=== PATIENT | female | born 1930 | race African-American/Black ===

== ENCOUNTER → 2016-06-30 | Day surgery (SDC) | payer MEDICARE, BC ==
[~2016-06-30] MED LIST: AMLO10TA80 PO; ASPI-1079 PO; ASPI-867; BACL-141; DIGO250T81 PO; DIGOXIN; EZET10TA PO; IBUP-777 PO; KV10 PO; LOSA100T14; POTA20TA82 PO; PRAV10TA35; SIMV40TA5 PO; TRAM50TA73; xeralto PO
== END | disposition home or self-care (01) ==
LOC: RAD 10:39
PROVIDERS: ATTEND Internal Medicine Endocrinology, Diabetes & Metabolism
DX: E07.89 Other specified disorders of thyroid (principal)
CPT/HCPCS: 10022; 76942; 88172; 88173

== ENCOUNTER 2016-12-07 11:23 | Emergency (ER) | payer MEDICARE, BC ==
[~2016-12-07] VITALS: Ht 162.6 cm; Wt 50.0 kg
[~2016-12-07 11:23] MED LIST changes: -EZET10TA PO; +ZET10 PO
[2016-12-07] MEDS ORDERED: TRAMADOL 50MG TABLET PO ONE (12:00)
[2016-12-07 12:19] LABS: BASOPHILS % 0.8 % (0.0-2.0); EOSINOPHILS % 0.5 % (0.0-5.0); HEMATOCRIT. 36.7 % (36.0-48.0); HEMOGLOBIN. 12.2 g/dL (12.0-16.0); LYMPHOCYTES % 14.1 % (20.0-50.0); MEAN CORPUSCULAR HEMOGLOBIN 28.6 pg (28.0-32.0); MEAN CORPUSCULAR VOLUME 86.3 fL (81.0-99.0); MEAN PLATELET VOLUME 8.8 fl (7.4-10.4); MONOCYTES % 5.1 % (2.0-8.0); NEUTROPHILS % 79.5 % (40.0-76.0); PLATELET 98 x1000/uL (130-400); RED BLOOD CELL COUNT 4.25 mill/uL (4.2-5.4); RED CELL DISTRIBUTION WIDTH 13.9 % (11.6-14.6)
[2016-12-07 12:34] LABS: CARBON DIOXIDE 33 mEq/L (21-32); CHLORIDE 103 mEq/L (98-107); CREATINE KINASE 33 IU/L (26-192); TROPONIN I < 0.02 ng/mL (0.00-0.04)
[2016-12-07 12:35] LABS: INR 1.1; PARTIAL THROMBOPLASTIN TIME 24.5 sec (23.4-31.0); PROTHROMBIN TIME 11.3 sec (9.4-11.6)
[2016-12-07 12:36] LABS: CREATINE KINASE MB FRACTION 0.9 ng/mL (0.5-3.6)
[2016-12-07 12:50] LABS: DIGOXIN < 0.1 ng/mL (0.9-2.0)
[2016-12-07 15:18] VITALS: BP 164/88
== END 2016-12-07 15:45 | disposition home or self-care (01) ==
LOC: ER 11:23
DX: S20.211A Contusion of right front wall of thorax, initial encounter (principal); I10 Essential (primary) hypertension; J44.9 Chronic obstructive pulmonary disease, unspecified; K21.9 Gastro-esophageal reflux disease without esophagitis; F03.90 Unspecified dementia, unspecified severity, without behavioral disturbance, psychotic disturbance, mood disturbance, and anxiety; R90.82 White matter disease, unspecified; Z88.0 Allergy status to penicillin; Z79.82 Long term (current) use of aspirin; Z88.6 Allergy status to analgesic agent; W19.XXXA Unspecified fall, initial encounter; Y93.89 Activity, other specified; Y92.89 Other specified places as the place of occurrence of the external cause; Y99.8 Other external cause status
CPT/HCPCS: 36415; 70450; 71010; 71101; 72170; 80053; 80162; 82550; 82553; 83690; 83880; 84484; 85025; 85610; 85730; 93005; 99285

== ENCOUNTER 2017-02-18 11:39 | Emergency (ER) | payer MEDICARE, BC ==
[~2017-02-18] VITALS: Ht 162.6 cm; Wt 50.0 kg
[~2017-02-18 11:39] MED LIST changes: -TRAM50TA73; +TRAM50TA94
[2017-02-18] MEDS ORDERED: SODIUM CHLORIDE 0.9% 500 ML IV ONE (14:10)
[2017-02-18] MEDS ORDERED: MORPHINE SULFATE 2 MG/ML CPJ (NOT FOR IM USE) IV ONE (14:15)
[2017-02-18 15:34] LABS: BASOPHILS % 0.3 % (0.0-2.0); EOSINOPHILS % 0.2 % (0.0-5.0); HEMATOCRIT. 35.7 % (36.0-48.0); HEMOGLOBIN. 11.9 g/dL (12.0-16.0); LYMPHOCYTES % 11.9 % (20.0-50.0); MEAN CORPUSCULAR HEMOGLOBIN 29.2 pg (28.0-32.0); MEAN CORPUSCULAR VOLUME 87.8 fL (81.0-99.0); MEAN PLATELET VOLUME 8.9 fl (7.4-10.4); MONOCYTES % 5.2 % (2.0-8.0); NEUTROPHILS % 82.4 % (40.0-76.0); PLATELET 99 x1000/uL (130-400); RED BLOOD CELL COUNT 4.07 mill/uL (4.2-5.4)
[2017-02-18 15:40] LABS: CHLORIDE 107 mEq/L (98-107)
[2017-02-18 15:44] LABS: INR 1.1; PARTIAL THROMBOPLASTIN TIME 24.5 sec (23.4-31.0); PROTHROMBIN TIME 11.5 sec (9.4-11.6)
[2017-02-18 15:56] LABS: CARBON DIOXIDE 33 mEq/L (21-32)
[2017-02-18 16:02] LABS: DIGOXIN < 0.1 ng/mL (0.9-2.0)
[2017-02-18 18:16] VITALS: BP 134/72
== END 2017-02-18 18:42 | disposition home or self-care (01) ==
LOC: ER 11:49
DX: R51 Headache (principal); M25.551 Pain in right hip; M25.552 Pain in left hip; R79.1 Abnormal coagulation profile; E11.9 Type 2 diabetes mellitus without complications; F03.90 Unspecified dementia, unspecified severity, without behavioral disturbance, psychotic disturbance, mood disturbance, and anxiety; I10 Essential (primary) hypertension; K21.9 Gastro-esophageal reflux disease without esophagitis; K59.00 Constipation, unspecified; W01.0XXA Fall on same level from slipping, tripping and stumbling without subsequent striking against object, initial encounter; Y93.89 Activity, other specified; Y99.8 Other external cause status; Y92.89 Other specified places as the place of occurrence of the external cause; Z79.82 Long term (current) use of aspirin; Z88.0 Allergy status to penicillin; Z95.1 Presence of aortocoronary bypass graft
CPT/HCPCS: 36415; 70450; 71010; 73521; 80053; 80162; 85025; 85610; 85730; 93005; 96361; 96374; 99285; J2270; J7040

== ENCOUNTER 2017-05-15 17:50 | Inpatient (IN) | payer MEDICARE, BC ==
[~2017-05-15] VITALS: Ht 165.1 cm; Wt 53.5 kg
[~2017-05-15 17:50] MED LIST changes: -AMLO10TA80 PO; -ASPI-1079 PO; -ASPI-867; -BACL-141; +BENJ PO; -DIGO250T81 PO; -DIGOXIN; +DONE10TA43 PO; +GABA-531 PO; +HYDR200T80 PO; -IBUP-777 PO; -KV10 PO; -LOSA100T14; +MEMA10TA2 PO; +OMEP20TA2 PO; +PARO-66 PO; -POTA20TA82 PO; -PRAV10TA35; +PRAV40TA58 PO; -SIMV40TA5 PO; -TRAM50TA94; -xeralto PO
[2017-05-15 18:40] VITALS: BP 171/82
[2017-05-15 20:00] VITALS: BP 186/85
[2017-05-15] MEDS ORDERED: DICYCLOMINE HCL 10MG CAPSULE PO PRN (20:15)
[2017-05-15] MEDS: CLONIDINE 0.1MG TABLET PO PRN (20:53)
[2017-05-15] MEDS: ATORVASTATIN CALCIUM 10MG TABLET PO SCH (20:54)
[2017-05-15] MEDS: GABAPENTIN 300MG CAPSULE PO SCH (20:54)
[2017-05-15] MEDS ORDERED: DONEPEZIL 23 MG PO SCH (21:00)
[2017-05-16] MEDS: DONEPEZIL 23MG PO SCH ×3 (00:06→21:13)
[2017-05-16] MEDS: PAROXETINE HCL 20MG TABLET PO SCH ×2 (00:07→21:13)
[2017-05-16 07:13] LABS: BASOPHILS % 0.7 % (0.0-2.0); EOSINOPHILS % 2.7 % (0.0-5.0); HEMATOCRIT. 30.1 % (36.0-48.0); HEMOGLOBIN. 10.2 g/dL (12.0-16.0); LYMPHOCYTES % 23.7 % (20.0-50.0); MEAN CORPUSCULAR HEMOGLOBIN 28.9 pg (28.0-32.0); MEAN PLATELET VOLUME 8.9 fl (7.4-10.4); MONOCYTES % 8.3 % (2.0-8.0); NEUTROPHILS % 64.6 % (40.0-76.0); PLATELET 146 x1000/uL (130-400); RED BLOOD CELL COUNT 3.54 mill/uL (4.2-5.4); RED CELL DISTRIBUTION WIDTH 12.9 % (11.6-14.6)
[2017-05-16 07:26] LABS: CHLORIDE 107 mEq/L (98-107)
[2017-05-16 07:42] LABS: PREALBUMIN 15.8 mg/dL (20.0-40.0)
[2017-05-16 08:00] VITALS: BP 157/82
[2017-05-16] MEDS: FAMOTIDINE 20MG TABLET PO SCH (08:17)
[2017-05-16] MEDS: HYDROXYCHLOROQUINE SULFATE 200MG TABLET PO SCH (08:18)
[2017-05-16] MEDS: MEMANTINE HCL 10MG TABLET PO SCH ×2 (08:18→16:44)
[2017-05-16] MEDS: EZETIMIBE 10MG TABLET PO SCH (08:19)
[2017-05-16] MEDS: CLOPIDOGREL 75MG TABLET PO SCH (08:20)
[2017-05-16] MEDS: ENOXAPARIN 30MG/0.3ML SYR SUBCUT SCH (10:13)
[2017-05-16] MEDS: TRAMADOL 50MG TABLET PO PRN (10:15)
[2017-05-16 20:00] VITALS: BP 171/86
[2017-05-16] MEDS: GABAPENTIN 300MG CAPSULE PO SCH (21:13)
[2017-05-16] MEDS: ATORVASTATIN CALCIUM 10MG TABLET PO SCH (21:14)
[2017-05-16] MEDS: CLONIDINE 0.1MG TABLET PO PRN (21:14)
[2017-05-17 08:00] VITALS: BP 186/87
[2017-05-17] MEDS: CLOPIDOGREL 75MG TABLET PO SCH (09:34)
[2017-05-17] MEDS: FAMOTIDINE 20MG TABLET PO SCH (09:34)
[2017-05-17] MEDS: MEMANTINE HCL 10MG TABLET PO SCH ×2 (09:34→17:56)
[2017-05-17] MEDS: ENOXAPARIN 30MG/0.3ML SYR SUBCUT SCH (09:34)
[2017-05-17] MEDS: HYDROXYCHLOROQUINE SULFATE 200MG TABLET PO SCH (09:34)
[2017-05-17] MEDS: EZETIMIBE 10MG TABLET PO SCH (09:34)
[2017-05-17 10:20] VITALS: BP 137/89
[2017-05-17] MEDS: TRAMADOL 50MG TABLET PO PRN (10:44)
[2017-05-17] MEDS: AMLODIPINE 5MG TABLET PO SCH (12:36)
[2017-05-17] MEDS ORDERED: TRAMADOL 50MG TABLET PO PRN (16:15)
[2017-05-17 20:00] VITALS: BP 146/68
[2017-05-17] MEDS: ATORVASTATIN CALCIUM 10MG TABLET PO SCH (20:53)
[2017-05-17] MEDS: DONEPEZIL 23MG PO SCH (20:54)
[2017-05-17] MEDS: GABAPENTIN 300MG CAPSULE PO SCH (20:54)
[2017-05-17] MEDS: PAROXETINE HCL 20MG TABLET PO SCH (20:54)
[2017-05-18 06:57] LABS: BASOPHILS % 0.8 % (0.0-2.0); EOSINOPHILS % 1.5 % (0.0-5.0); HEMATOCRIT. 32.9 % (36.0-48.0); HEMOGLOBIN. 11.3 g/dL (12.0-16.0); LYMPHOCYTES % 27.7 % (20.0-50.0); MEAN CORPUSCULAR VOLUME 84.6 fL (81.0-99.0); MEAN PLATELET VOLUME 8.9 fl (7.4-10.4); PLATELET 158 x1000/uL (130-400); RED CELL DISTRIBUTION WIDTH 13.4 % (11.6-14.6)
[2017-05-18 07:11] LABS: CHLORIDE 103 mEq/L (98-107)
[2017-05-18 07:25] LABS: PHOSPHORUS 3.5 mg/dL (2.5-4.9); TOTAL IRON BINDING CAPACITY 257 ug/dL (250-450)
[2017-05-18 07:48] LABS: VITAMIN B12 SERUM 1017 pg/mL (211-911)
[2017-05-18 08:00] VITALS: BP 164/90
[2017-05-18] MEDS: CLOPIDOGREL 75MG TABLET PO SCH (08:45)
[2017-05-18] MEDS: AMLODIPINE 5MG TABLET PO SCH (08:46)
[2017-05-18] MEDS: FAMOTIDINE 20MG TABLET PO SCH (08:46)
[2017-05-18] MEDS: MEMANTINE HCL 10MG TABLET PO SCH ×2 (08:47→17:41)
[2017-05-18] MEDS: HYDROXYCHLOROQUINE SULFATE 200MG TABLET PO SCH (08:47)
[2017-05-18] MEDS: EZETIMIBE 10MG TABLET PO SCH (08:49)
[2017-05-18] MEDS: ENOXAPARIN 30MG/0.3ML SYR SUBCUT SCH (08:50)
[2017-05-18 11:38] LABS: CLARITY URINE CLEAR (CLEAR); COLOR URINE YELLOW (YELLOW); KETONES URINE NEGATIVE (NEGATIVE); LEUKOCYTE ESTERASE URINE NEGATIVE (NEGATIVE); NITRITE URINE NEGATIVE (NEGATIVE); OCCULT BLOOD URINE NEGATIVE (NEGATIVE); PROTEIN URINE NEGATIVE (NEGATIVE); SPECIFIC GRAVITY URINE 1.013 (1.005-1.030); UROBILINOGEN URINE 0.2 E.U./dL (0.2-1.0)
[2017-05-18 11:56] LABS: FERRITIN 424 ng/mL (10-291)
[2017-05-18 20:00] VITALS: BP 151/75
[2017-05-18] MEDS: ATORVASTATIN CALCIUM 10MG TABLET PO SCH (21:26)
[2017-05-18] MEDS: PAROXETINE HCL 20MG TABLET PO SCH (21:26)
[2017-05-18] MEDS: DONEPEZIL 23MG PO SCH (21:26)
[2017-05-18] MEDS: GABAPENTIN 300MG CAPSULE PO SCH (21:26)
[2017-05-19] MEDS: CLOPIDOGREL 75MG TABLET PO SCH (08:29)
[2017-05-19] MEDS: HYDROXYCHLOROQUINE SULFATE 200MG TABLET PO SCH (08:29)
[2017-05-19] MEDS: EZETIMIBE 10MG TABLET PO SCH (08:29)
[2017-05-19 08:30] VITALS: BP 163/88
[2017-05-19] MEDS: MEMANTINE HCL 10MG TABLET PO SCH ×2 (08:30→16:32)
[2017-05-19] MEDS: AMLODIPINE 10MG TABLET PO SCH (08:30)
[2017-05-19] MEDS: FAMOTIDINE 20MG TABLET PO SCH (08:30)
[2017-05-19] MEDS: ENOXAPARIN 30MG/0.3ML SYR SUBCUT SCH (08:30)
[2017-05-19 11:15] VITALS: BP 124/72
[2017-05-19] MEDS: LIDOCAINE 5% PATCH TOP SCH (11:18)
[2017-05-19 20:00] VITALS: BP 137/72
[2017-05-19] MEDS: GABAPENTIN 300MG CAPSULE PO SCH (21:30)
[2017-05-19] MEDS: ATORVASTATIN CALCIUM 10MG TABLET PO SCH (21:30)
[2017-05-19] MEDS: PAROXETINE HCL 20MG TABLET PO SCH (21:30)
[2017-05-19] MEDS: DONEPEZIL 23MG PO SCH (21:31)
[2017-05-20 08:30] VITALS: BP 144/81
[2017-05-20] MEDS: HYDROXYCHLOROQUINE SULFATE 200MG TABLET PO SCH (08:34)
[2017-05-20] MEDS: EZETIMIBE 10MG TABLET PO SCH (08:34)
[2017-05-20] MEDS: MEMANTINE HCL 10MG TABLET PO SCH ×2 (08:35→16:05)
[2017-05-20] MEDS: FAMOTIDINE 20MG TABLET PO SCH (08:35)
[2017-05-20] MEDS: ENOXAPARIN 30MG/0.3ML SYR SUBCUT SCH (08:35)
[2017-05-20] MEDS: AMLODIPINE 10MG TABLET PO SCH (08:35)
[2017-05-20] MEDS: LIDOCAINE 5% PATCH TOP SCH (08:36)
[2017-05-20] MEDS: CLOPIDOGREL 75MG TABLET PO SCH (08:37)
[2017-05-20] MEDS ORDERED: LACTULOSE 20G/30ML UDC PO SCH (10:45)
[2017-05-20 20:00] VITALS: BP 123/67
[2017-05-20] MEDS: GABAPENTIN 300MG CAPSULE PO SCH (21:15)
[2017-05-20] MEDS: ATORVASTATIN CALCIUM 10MG TABLET PO SCH (21:15)
[2017-05-20] MEDS: PAROXETINE HCL 20MG TABLET PO SCH (21:16)
[2017-05-20] MEDS: DONEPEZIL 23MG PO SCH (21:19)
[2017-05-21 06:20] LABS: BASOPHILS % 1.1 % (0.0-2.0); EOSINOPHILS % 1.2 % (0.0-5.0); HEMATOCRIT. 32.7 % (36.0-48.0); HEMOGLOBIN. 10.9 g/dL (12.0-16.0); LYMPHOCYTES % 26.2 % (20.0-50.0); MEAN CORPUSCULAR HEMOGLOBIN 28.8 pg (28.0-32.0); MEAN CORPUSCULAR VOLUME 86.3 fL (81.0-99.0); MEAN PLATELET VOLUME 8.7 fl (7.4-10.4); MONOCYTES % 10.2 % (2.0-8.0); NEUTROPHILS % 61.3 % (40.0-76.0); PLATELET 173 x1000/uL (130-400); RED BLOOD CELL COUNT 3.79 mill/uL (4.2-5.4); RED CELL DISTRIBUTION WIDTH 13.7 % (11.6-14.6)
[2017-05-21 07:14] LABS: CHLORIDE 107 mEq/L (98-107)
[2017-05-21 08:00] VITALS: BP 150/75
[2017-05-21] MEDS: MEMANTINE HCL 10MG TABLET PO SCH ×2 (09:13→17:37)
[2017-05-21] MEDS: FAMOTIDINE 20MG TABLET PO SCH (09:13)
[2017-05-21] MEDS: EZETIMIBE 10MG TABLET PO SCH (09:14)
[2017-05-21] MEDS: HYDROXYCHLOROQUINE SULFATE 200MG TABLET PO SCH (09:14)
[2017-05-21] MEDS: AMLODIPINE 10MG TABLET PO SCH (09:14)
[2017-05-21] MEDS: CLOPIDOGREL 75MG TABLET PO SCH (09:14)
[2017-05-21] MEDS: ENOXAPARIN 30MG/0.3ML SYR SUBCUT SCH (09:15)
[2017-05-21] MEDS: LIDOCAINE 5% PATCH TOP SCH (09:17)
[2017-05-21 20:00] VITALS: BP 132/68
[2017-05-21] MEDS: ATORVASTATIN CALCIUM 10MG TABLET PO SCH (21:59)
[2017-05-21] MEDS: DONEPEZIL 23MG PO SCH (21:59)
[2017-05-21] MEDS: PAROXETINE HCL 20MG TABLET PO SCH (21:59)
[2017-05-21] MEDS: GABAPENTIN 300MG CAPSULE PO SCH (21:59)
[2017-05-22 08:00] VITALS: BP 144/75
[2017-05-22] MEDS: FAMOTIDINE 20MG TABLET PO SCH (08:36)
[2017-05-22] MEDS: CLOPIDOGREL 75MG TABLET PO SCH (08:37)
[2017-05-22] MEDS: HYDROXYCHLOROQUINE SULFATE 200MG TABLET PO SCH (08:37)
[2017-05-22] MEDS: MEMANTINE HCL 10MG TABLET PO SCH ×2 (08:37→17:12)
[2017-05-22] MEDS: ENOXAPARIN 30MG/0.3ML SYR SUBCUT SCH (08:37)
[2017-05-22] MEDS: AMLODIPINE 10MG TABLET PO SCH (08:37)
[2017-05-22] MEDS: EZETIMIBE 10MG TABLET PO SCH (08:37)
[2017-05-22] MEDS: LIDOCAINE 5% PATCH TOP SCH (08:40)
[2017-05-22 13:07] LABS: 25-HYDROXY VITAMIN D3 42 ng/mL (.)
[2017-05-22 17:31] LABS: CLARITY URINE CLOUDY (CLEAR); COLOR URINE YELLOW (YELLOW); KETONES URINE NEGATIVE (NEGATIVE); LEUKOCYTE ESTERASE URINE 3+ (NEGATIVE); NITRITE URINE NEGATIVE (NEGATIVE); OCCULT BLOOD URINE TRACE (NEGATIVE); PROTEIN URINE NEGATIVE (NEGATIVE); SPECIFIC GRAVITY URINE 1.016 (1.005-1.030); UROBILINOGEN URINE 0.2 E.U./dL (0.2-1.0)
[2017-05-22 20:00] VITALS: BP 132/72
[2017-05-22 20:55] LABS: BASOPHILS % 0.5 % (0.0-2.0); EOSINOPHILS % 0.2 % (0.0-5.0); HEMATOCRIT. 32.9 % (36.0-48.0); HEMOGLOBIN. 11.2 g/dL (12.0-16.0); LYMPHOCYTES % 14.7 % (20.0-50.0); MEAN CORPUSCULAR HEMOGLOBIN 29.1 pg (28.0-32.0); MEAN CORPUSCULAR VOLUME 85.5 fL (81.0-99.0); MEAN PLATELET VOLUME 8.5 fl (7.4-10.4); MONOCYTES % 9.6 % (2.0-8.0); PLATELET 157 x1000/uL (130-400); RED BLOOD CELL COUNT 3.84 mill/uL (4.2-5.4); RED CELL DISTRIBUTION WIDTH 13.7 % (11.6-14.6)
[2017-05-22 21:14] LABS: CHLORIDE 107 mEq/L (98-107)
[2017-05-22 21:16] LABS: AMMONIA < 10 uMol/L (<32)
[2017-05-22 21:18] LABS: PHOSPHORUS 4.4 mg/dL (2.5-4.9)
[2017-05-22] MEDS: GABAPENTIN 300MG CAPSULE PO SCH (21:53)
[2017-05-22] MEDS: ATORVASTATIN CALCIUM 10MG TABLET PO SCH (21:53)
[2017-05-22] MEDS: PAROXETINE HCL 20MG TABLET PO SCH (21:53)
[2017-05-22] MEDS: DONEPEZIL 23MG PO SCH (21:54)
[2017-05-22] MEDS: ASPIRIN/DIPYRIDAMOLE 25MG/200MG CAPSULE SA PO SCH (21:58)
[2017-05-23 08:00] VITALS: BP 134/76
[2017-05-23] MEDS: MEMANTINE HCL 10MG TABLET PO SCH ×2 (08:52→16:58)
[2017-05-23] MEDS: ASPIRIN/DIPYRIDAMOLE 25MG/200MG CAPSULE SA PO SCH ×2 (08:52→22:02)
[2017-05-23] MEDS: AMLODIPINE 10MG TABLET PO SCH (08:52)
[2017-05-23] MEDS: FAMOTIDINE 20MG TABLET PO SCH (08:53)
[2017-05-23] MEDS: ENOXAPARIN 30MG/0.3ML SYR SUBCUT SCH (08:53)
[2017-05-23] MEDS: EZETIMIBE 10MG TABLET PO SCH (08:53)
[2017-05-23] MEDS: HYDROXYCHLOROQUINE SULFATE 200MG TABLET PO SCH (08:53)
[2017-05-23] MEDS: LIDOCAINE 5% PATCH TOP SCH (08:54)
[2017-05-23] MEDS: DEXT 5%/0.45% NACL 500ML 500 ML IV SCH ×2 (18:16→22:00)
[2017-05-23 20:00] VITALS: BP 119/63
[2017-05-23] MEDS: PAROXETINE HCL 20MG TABLET PO SCH (22:01)
[2017-05-23] MEDS: GABAPENTIN 300MG CAPSULE PO SCH (22:02)
[2017-05-23] MEDS: ATORVASTATIN CALCIUM 10MG TABLET PO SCH (22:02)
[2017-05-23] MEDS: DONEPEZIL 23MG PO SCH (22:02)
[2017-05-24] MEDS: DEXT 5%/0.45% NACL 500ML 500 ML IV SCH (04:31)
[2017-05-24 07:18] LABS: BASOPHILS % 0.5 % (0.0-2.0); HEMATOCRIT. 32.6 % (36.0-48.0); LYMPHOCYTES % 17.8 % (20.0-50.0); MEAN CORPUSCULAR HEMOGLOBIN 29.2 pg (28.0-32.0); MEAN CORPUSCULAR VOLUME 86.1 fL (81.0-99.0); MEAN PLATELET VOLUME 8.9 fl (7.4-10.4); MONOCYTES % 7.3 % (2.0-8.0); NEUTROPHILS % 74.4 % (40.0-76.0); PLATELET 168 x1000/uL (130-400); RED BLOOD CELL COUNT 3.79 mill/uL (4.2-5.4); RED CELL DISTRIBUTION WIDTH 13.8 % (11.6-14.6)
[2017-05-24] MEDS ORDERED: TRAMADOL 50MG TABLET PO PRN (08:00)
[2017-05-24 08:12] LABS: PHOSPHORUS 4.6 mg/dL (2.5-4.9)
[2017-05-24 08:19] VITALS: BP 116/65
[2017-05-24] MEDS: FAMOTIDINE 20MG TABLET PO SCH (09:12)
[2017-05-24] MEDS: MEMANTINE HCL 10MG TABLET PO SCH ×2 (09:12→17:38)
[2017-05-24] MEDS: AMLODIPINE 10MG TABLET PO SCH (09:12)
[2017-05-24] MEDS: ASPIRIN/DIPYRIDAMOLE 25MG/200MG CAPSULE SA PO SCH ×2 (09:12→21:15)
[2017-05-24] MEDS: EZETIMIBE 10MG TABLET PO SCH (09:12)
[2017-05-24] MEDS: HYDROXYCHLOROQUINE SULFATE 200MG TABLET PO SCH (09:12)
[2017-05-24] MEDS: ENOXAPARIN 30MG/0.3ML SYR SUBCUT SCH (09:13)
[2017-05-24] MEDS: LIDOCAINE 5% PATCH TOP SCH (09:20)
[2017-05-24 11:06] LABS: CHLORIDE 106 mEq/L (98-107)
[2017-05-24] MEDS: DEXT 5%/0.45% NACL 1000ML 1,000 ML IV SCH (14:59)
[2017-05-24 20:00] VITALS: BP 111/66
[2017-05-24] MEDS: GABAPENTIN 300MG CAPSULE PO SCH (21:15)
[2017-05-24] MEDS: ATORVASTATIN CALCIUM 10MG TABLET PO SCH (21:15)
[2017-05-24] MEDS: DONEPEZIL 23MG PO SCH (21:17)
[2017-05-24] MEDS: PAROXETINE HCL 20MG TABLET PO SCH (21:20)
[2017-05-25] MEDS: DEXT 5%/0.45% NACL 1000ML 1,000 ML IV SCH ×2 (04:31→10:40)
[2017-05-25 08:00] VITALS: BP 136/67
[2017-05-25] MEDS: MEMANTINE HCL 10MG TABLET PO SCH ×2 (08:49→18:54)
[2017-05-25] MEDS: FAMOTIDINE 20MG TABLET PO SCH (08:49)
[2017-05-25] MEDS: ASPIRIN/DIPYRIDAMOLE 25MG/200MG CAPSULE SA PO SCH ×2 (08:49→20:58)
[2017-05-25] MEDS: AMLODIPINE 10MG TABLET PO SCH (08:50)
[2017-05-25] MEDS: HYDROXYCHLOROQUINE SULFATE 200MG TABLET PO SCH (08:50)
[2017-05-25] MEDS: EZETIMIBE 10MG TABLET PO SCH (08:51)
[2017-05-25] MEDS: ENOXAPARIN 30MG/0.3ML SYR SUBCUT SCH (08:52)
[2017-05-25] MEDS: LIDOCAINE 5% PATCH TOP SCH (08:54)
[2017-05-25 20:00] VITALS: BP 134/59
[2017-05-25] MEDS: DONEPEZIL 23MG PO SCH (20:58)
[2017-05-25] MEDS: GABAPENTIN 300MG CAPSULE PO SCH (20:58)
[2017-05-25] MEDS: ATORVASTATIN CALCIUM 10MG TABLET PO SCH (20:58)
[2017-05-25] MEDS: PAROXETINE HCL 20MG TABLET PO SCH (20:58)
[2017-05-26] MEDS: DEXT 5%/0.45% NACL 1000ML 1,000 ML IV SCH ×2 (04:06→15:51)
[2017-05-26 07:30] VITALS: BP 129/74
[2017-05-26] MEDS: MEMANTINE HCL 10MG TABLET PO SCH ×2 (08:53→17:50)
[2017-05-26] MEDS: EZETIMIBE 10MG TABLET PO SCH (08:53)
[2017-05-26] MEDS: HYDROXYCHLOROQUINE SULFATE 200MG TABLET PO SCH (08:53)
[2017-05-26] MEDS: ASPIRIN/DIPYRIDAMOLE 25MG/200MG CAPSULE SA PO SCH ×2 (08:53→20:47)
[2017-05-26] MEDS: FAMOTIDINE 20MG TABLET PO SCH (08:53)
[2017-05-26] MEDS: AMLODIPINE 10MG TABLET PO SCH (08:53)
[2017-05-26] MEDS: LIDOCAINE 5% PATCH TOP SCH (08:54)
[2017-05-26] MEDS: ENOXAPARIN 30MG/0.3ML SYR SUBCUT SCH (08:54)
[2017-05-26 20:00] VITALS: BP 138/67
[2017-05-26] MEDS: PAROXETINE HCL 20MG TABLET PO SCH (20:47)
[2017-05-26] MEDS: ATORVASTATIN CALCIUM 10MG TABLET PO SCH (20:47)
[2017-05-26] MEDS: GABAPENTIN 300MG CAPSULE PO SCH (20:48)
[2017-05-26] MEDS: DONEPEZIL 23MG PO SCH (20:48)
[2017-05-27] MEDS: DEXT 5%/0.45% NACL 1000ML 1,000 ML IV SCH ×2 (03:17→17:24)
[2017-05-27 08:00] VITALS: BP 126/70
[2017-05-27] MEDS: EZETIMIBE 10MG TABLET PO SCH (09:48)
[2017-05-27] MEDS: HYDROXYCHLOROQUINE SULFATE 200MG TABLET PO SCH (09:48)
[2017-05-27] MEDS: FAMOTIDINE 20MG TABLET PO SCH (09:48)
[2017-05-27] MEDS: MEMANTINE HCL 10MG TABLET PO SCH ×2 (09:48→17:24)
[2017-05-27] MEDS: AMLODIPINE 10MG TABLET PO SCH (09:48)
[2017-05-27] MEDS: ASPIRIN/DIPYRIDAMOLE 25MG/200MG CAPSULE SA PO SCH ×2 (09:48→20:34)
[2017-05-27] MEDS: LIDOCAINE 5% PATCH TOP SCH (09:49)
[2017-05-27] MEDS: ENOXAPARIN 30MG/0.3ML SYR SUBCUT SCH (09:49)
[2017-05-27] MEDS: LACTULOSE 20G/30ML UDC PO SCH ×3 (13:28→21:00)
[2017-05-27 20:00] VITALS: BP 117/63
[2017-05-27] MEDS: ATORVASTATIN CALCIUM 10MG TABLET PO SCH (20:33)
[2017-05-27] MEDS: GABAPENTIN 300MG CAPSULE PO SCH (20:33)
[2017-05-27] MEDS: PAROXETINE HCL 20MG TABLET PO SCH (20:33)
[2017-05-27] MEDS: DONEPEZIL 23MG PO SCH (20:34)
[2017-05-27] MEDS: LIDOCAINE HCL 4% CREAM 76GM TUBE TP PRN (22:00)
[2017-05-28] MEDS: DEXT 5%/0.45% NACL 1000ML 1,000 ML IV SCH (05:20)
[2017-05-28 07:13] LABS: BASOPHILS % 0.4 % (0.0-2.0); EOSINOPHILS % 1.6 % (0.0-5.0); HEMATOCRIT. 30.8 % (36.0-48.0); HEMOGLOBIN. 10.6 g/dL (12.0-16.0); LYMPHOCYTES % 16.4 % (20.0-50.0); MEAN CORPUSCULAR HEMOGLOBIN 29.5 pg (28.0-32.0); MEAN CORPUSCULAR VOLUME 85.3 fL (81.0-99.0); MEAN PLATELET VOLUME 9.1 fl (7.4-10.4); MONOCYTES % 7.3 % (2.0-8.0); NEUTROPHILS % 74.3 % (40.0-76.0); PLATELET 143 x1000/uL (130-400); RED BLOOD CELL COUNT 3.61 mill/uL (4.2-5.4); RED CELL DISTRIBUTION WIDTH 13.8 % (11.6-14.6)
[2017-05-28 07:25] LABS: CHLORIDE 106 mEq/L (98-107)
[2017-05-28 08:10] VITALS: BP 148/77
[2017-05-28] MEDS: HYDROXYCHLOROQUINE SULFATE 200MG TABLET PO SCH (09:10)
[2017-05-28] MEDS: MEMANTINE HCL 10MG TABLET PO SCH ×2 (09:11→16:36)
[2017-05-28] MEDS: EZETIMIBE 10MG TABLET PO SCH (09:11)
[2017-05-28] MEDS: ASPIRIN/DIPYRIDAMOLE 25MG/200MG CAPSULE SA PO SCH ×2 (09:11→22:10)
[2017-05-28] MEDS: FAMOTIDINE 20MG TABLET PO SCH (09:12)
[2017-05-28] MEDS: AMLODIPINE 10MG TABLET PO SCH (09:12)
[2017-05-28] MEDS: ENOXAPARIN 30MG/0.3ML SYR SUBCUT SCH (09:14)
[2017-05-28] MEDS: LIDOCAINE 5% PATCH TOP SCH (09:15)
[2017-05-28] MEDS: LIDOCAINE HCL 4% CREAM 76GM TUBE TP PRN ×2 (09:34→22:10)
[2017-05-28 20:00] VITALS: BP 134/69
[2017-05-28] MEDS: DONEPEZIL 23MG PO SCH (22:09)
[2017-05-28] MEDS: ATORVASTATIN CALCIUM 10MG TABLET PO SCH (22:10)
[2017-05-28] MEDS: GABAPENTIN 300MG CAPSULE PO SCH (22:10)
[2017-05-28] MEDS: PAROXETINE HCL 20MG TABLET PO SCH (22:11)
[2017-05-29 08:00] VITALS: BP 135/68
[2017-05-29] MEDS: HYDROXYCHLOROQUINE SULFATE 200MG TABLET PO SCH (08:18)
[2017-05-29] MEDS: FAMOTIDINE 20MG TABLET PO SCH (08:18)
[2017-05-29] MEDS: ASPIRIN/DIPYRIDAMOLE 25MG/200MG CAPSULE SA PO SCH ×2 (08:18→21:52)
[2017-05-29] MEDS: AMLODIPINE 10MG TABLET PO SCH (08:20)
[2017-05-29] MEDS: MEMANTINE HCL 10MG TABLET PO SCH ×2 (08:20→17:17)
[2017-05-29] MEDS: EZETIMIBE 10MG TABLET PO SCH (08:21)
[2017-05-29] MEDS: ENOXAPARIN 30MG/0.3ML SYR SUBCUT SCH (08:22)
[2017-05-29] MEDS: LIDOCAINE 5% PATCH TOP SCH (09:51)
[2017-05-29] MEDS: LIDOCAINE HCL 4% CREAM 76GM TUBE TP PRN (09:52)
[2017-05-29] MEDS ORDERED: ALBUTEROL (0.083%) 2.5MG/3ML NEB HHN PRN (13:15)
[2017-05-29 14:49] LABS: CREATINE KINASE 26 IU/L (26-192)
[2017-05-29 14:50] LABS: CREATINE KINASE MB FRACTION < 0.5 ng/mL (0.5-3.6)
[2017-05-29 20:00] VITALS: BP 104/59
[2017-05-29] MEDS: PAROXETINE HCL 20MG TABLET PO SCH (21:52)
[2017-05-29] MEDS: GABAPENTIN 300MG CAPSULE PO SCH (21:52)
[2017-05-29] MEDS: DONEPEZIL 23MG PO SCH (21:52)
[2017-05-29] MEDS: ATORVASTATIN CALCIUM 10MG TABLET PO SCH (21:52)
[2017-05-30 08:00] VITALS: BP 132/66
[2017-05-30] MEDS: ASPIRIN/DIPYRIDAMOLE 25MG/200MG CAPSULE SA PO SCH ×2 (08:37→22:18)
[2017-05-30] MEDS: EZETIMIBE 10MG TABLET PO SCH (08:38)
[2017-05-30] MEDS: MEMANTINE HCL 10MG TABLET PO SCH ×2 (08:38→16:19)
[2017-05-30] MEDS: HYDROXYCHLOROQUINE SULFATE 200MG TABLET PO SCH (08:38)
[2017-05-30] MEDS: FAMOTIDINE 20MG TABLET PO SCH (08:38)
[2017-05-30] MEDS: AMLODIPINE 10MG TABLET PO SCH (08:39)
[2017-05-30] MEDS: ENOXAPARIN 30MG/0.3ML SYR SUBCUT SCH (08:40)
[2017-05-30] MEDS: LIDOCAINE 5% PATCH TOP SCH (08:41)
[2017-05-30 20:00] VITALS: BP 121/59
[2017-05-30] MEDS: ATORVASTATIN CALCIUM 10MG TABLET PO SCH (22:17)
[2017-05-30] MEDS: GABAPENTIN 300MG CAPSULE PO SCH (22:17)
[2017-05-30] MEDS: PAROXETINE HCL 20MG TABLET PO SCH (22:17)
[2017-05-30] MEDS: DONEPEZIL 23MG PO SCH (22:20)
[2017-05-31 07:19] LABS: BASOPHILS % 0.6 % (0.0-2.0); EOSINOPHILS % 1.5 % (0.0-5.0); HEMATOCRIT. 31.1 % (36.0-48.0); HEMOGLOBIN. 10.5 g/dL (12.0-16.0); LYMPHOCYTES % 27.7 % (20.0-50.0); MEAN PLATELET VOLUME 9.2 fl (7.4-10.4); MONOCYTES % 8.8 % (2.0-8.0); NEUTROPHILS % 61.4 % (40.0-76.0); PLATELET 147 x1000/uL (130-400); RED BLOOD CELL COUNT 3.62 mill/uL (4.2-5.4); RED CELL DISTRIBUTION WIDTH 13.9 % (11.6-14.6)
[2017-05-31 08:00] VITALS: BP 129/70
[2017-05-31 08:48] LABS: CHLORIDE 108 mEq/L (98-107)
[2017-05-31] MEDS: AMLODIPINE 10MG TABLET PO SCH (09:00)
[2017-05-31] MEDS: ASPIRIN/DIPYRIDAMOLE 25MG/200MG CAPSULE SA PO SCH ×2 (09:25→20:46)
[2017-05-31] MEDS: MEMANTINE HCL 10MG TABLET PO SCH ×2 (09:25→16:42)
[2017-05-31] MEDS: ENOXAPARIN 30MG/0.3ML SYR SUBCUT SCH (09:25)
[2017-05-31] MEDS: EZETIMIBE 10MG TABLET PO SCH (09:25)
[2017-05-31] MEDS: HYDROXYCHLOROQUINE SULFATE 200MG TABLET PO SCH (09:25)
[2017-05-31] MEDS: FAMOTIDINE 20MG TABLET PO SCH (09:28)
[2017-05-31] MEDS: LIDOCAINE 5% PATCH TOP SCH (09:29)
[2017-05-31 20:00] VITALS: BP 133/62
[2017-05-31] MEDS: GABAPENTIN 300MG CAPSULE PO SCH (20:46)
[2017-05-31] MEDS: ATORVASTATIN CALCIUM 10MG TABLET PO SCH (20:47)
[2017-05-31] MEDS: DONEPEZIL 23MG PO SCH (20:47)
[2017-05-31] MEDS: PAROXETINE HCL 20MG TABLET PO SCH (20:47)
[2017-05-31 21:30] VITALS: BP 133/62
== END 2017-05-31 22:15 | disposition home health service (06) | DRG 65 ==
PROVIDERS: ADMIT Physical Medicine & Rehabilitation Spinal Cord Injury Medicine; ATTEND Internal Medicine Pulmonary Disease
DX: I63.9 Cerebral infarction, unspecified (principal); M48.56XA Collapsed vertebra, not elsewhere classified, lumbar region, initial encounter for fracture; G62.9 Polyneuropathy, unspecified; F33.1 Major depressive disorder, recurrent, moderate; M48.54XA Collapsed vertebra, not elsewhere classified, thoracic region, initial encounter for fracture; L89.621 Pressure ulcer of left heel, stage 1; L89.611 Pressure ulcer of right heel, stage 1; R47.01 Aphasia; J44.9 Chronic obstructive pulmonary disease, unspecified; I10 Essential (primary) hypertension; F03.90 Unspecified dementia, unspecified severity, without behavioral disturbance, psychotic disturbance, mood disturbance, and anxiety; R26.9 Unspecified abnormalities of gait and mobility; M79.609 Pain in unspecified limb; I35.0 Nonrheumatic aortic (valve) stenosis; M06.9 Rheumatoid arthritis, unspecified; E78.5 Hyperlipidemia, unspecified; M81.0 Age-related osteoporosis without current pathological fracture; M48.061 Spinal stenosis, lumbar region without neurogenic claudication; M54.5 Low back pain; M54.2 Cervicalgia; R53.81 Other malaise; R47.1 Dysarthria and anarthria; D64.9 Anemia, unspecified; K58.9 Irritable bowel syndrome, unspecified; E86.0 Dehydration; M47.892 Other spondylosis, cervical region; M47.896 Other spondylosis, lumbar region; M47.894 Other spondylosis, thoracic region; Z95.2 Presence of prosthetic heart valve; Z88.0 Allergy status to penicillin; Z87.891 Personal history of nicotine dependence; Z85.118 Personal history of other malignant neoplasm of bronchus and lung; Z85.038 Personal history of other malignant neoplasm of large intestine; Z82.49 Family history of ischemic heart disease and other diseases of the circulatory system; E04.1 Nontoxic single thyroid nodule; R07.89 Other chest pain
CPT/HCPCS: 36415; 70551; 71046; 71110; 80048; 80053; 81003; 82140; 82270; 82306; 82550; 82553; 82607; 82728; 83036; 83540; 83550; 83735; 84100; 84134; 84443; 84484; 84630; 85025; 87086; 92523; 92610; 93005; 93306; 93880; 93970; 94640; 97110; 97112; 97116; 97162; 97166; 97530; 97535; A6261; C1893; G0515; J1650; J3490; J7611

== ENCOUNTER 2017-12-14 12:09 | Inpatient (IN) | payer MEDICARE, BC ==
[~2017-12-14] VITALS: Ht 165.1 cm; Wt 47.2 kg
[2017-12-14] MEDS ORDERED: SODIUM CHLORIDE 0.9% 500 ML IV ONE (13:00)
[2017-12-14] MEDS ORDERED: ACETAMINOPHEN 325MG TABLET PO ONE (17:00)
[2017-12-14 17:24] LABS: HEMATOCRIT. 37.6 % (36.0-48.0); HEMOGLOBIN. 12.4 g/dL (12.0-16.0); MEAN CORPUSCULAR HEMOGLOBIN 28.2 pg (28.0-32.0); MEAN CORPUSCULAR VOLUME 85.4 fL (81.0-99.0); MEAN PLATELET VOLUME 8.7 fl (7.4-10.4); PLATELET 121 x1000/uL (130-400); RED BLOOD CELL COUNT 4.41 mill/uL (4.2-5.4)
[2017-12-14 17:31] LABS: INR 1.1; PROTHROMBIN TIME 10.7 sec (9.1-11.1)
[2017-12-14 17:34] LABS: CHLORIDE 106 mEq/L (98-107)
[2017-12-14 17:56] LABS: PLATELET ESTIMATE SLIGHTLY DECREASED
[2017-12-14] MEDS ORDERED: ACETAMINOPHEN 325MG TABLET ONE (20:33)
[2017-12-14 21:18] VITALS: BP 116/71
[2017-12-14 21:30] VITALS: BP 116/71
[2017-12-14] MEDS ORDERED: ASPI-1159 MT (21:33)
[2017-12-14] MEDS ORDERED: GABA-531 MT (21:35)
[2017-12-14] MEDS ORDERED: AMLO10TA80 MT (21:35)
[2017-12-14] MEDS ORDERED: MEMA10TA19 PO (21:36)
[2017-12-14] MEDS ORDERED: ERGO400C MT (22:10)
[2017-12-14] MEDS ORDERED: ALEN70TA46 PO (22:10)
[2017-12-14] MEDS ORDERED: DICY10CA88 MT (22:42)
[2017-12-14] MEDS: ACETAMINOPHEN 325MG TABLET PO PRN (23:33)
[2017-12-15] VITALS: BP 144/73
[2017-12-15 04:00] VITALS: BP 152/77
[2017-12-15 08:00] VITALS: BP 152/78
[2017-12-15] MEDS ORDERED: DICYCLOMINE HCL 10MG CAPSULE PO SCH (09:00)
[2017-12-15] MEDS: DICYCLOMINE HCL 10MG CAPSULE PO SCH ×3 (09:00→18:31)
[2017-12-15] MEDS ORDERED: MEDICATION NOT ON FORMULARY EA (Aspirin (Aspirin Low Dose) 1 TAB) MT SCH (09:00)
[2017-12-15] MEDS ORDERED: MEMANTINE HCL 10MG TABLET PO SCH (09:00)
[2017-12-15] MEDS ORDERED: MEDICATION NOT ON FORMULARY EA (Omeprazole 20 MG) PO SCH (09:00)
[2017-12-15] MEDS ORDERED: DONEPEZIL HCL 10MG TABLET PO SCH (09:00)
[2017-12-15] MEDS ORDERED: HYDROXYCHLOROQUINE SULFATE 200 MG PO SCH (09:00)
[2017-12-15] MEDS ORDERED: MEDICATION NOT ON FORMULARY EA (Cholecalciferol (Vitamin D) 1 CAP) MT SCH (09:00)
[2017-12-15] MEDS: EZETIMIBE 10MG TABLET PO SCH (09:35)
[2017-12-15] MEDS: HYDROXYCHLOROQUINE SULFATE 200MG TABLET PO SCH (09:35)
[2017-12-15] MEDS: ENOXAPARIN 30MG/0.3ML SYR SUBCUT SCH (09:36)
[2017-12-15] MEDS: CHOLECALCIFEROL (VIT D3) 400 UNIT TABLET PO SCH (09:36)
[2017-12-15] MEDS: ASPIRIN 81MG TABLET PO SCH (09:36)
[2017-12-15] MEDS: OMEPRAZOLE 20MG CAPSULE EXTENDED RELEASE PO SCH (09:36)
[2017-12-15 13:00] VITALS: BP 152/72
[2017-12-15] MEDS: ACETAMINOPHEN 325MG TABLET PO PRN (13:10)
[2017-12-15 16:00] VITALS: BP 155/79
[2017-12-15] MEDS: DONEPEZIL HCL 23 MG PO SCH (18:29)
[2017-12-15 20:00] VITALS: BP 157/82
[2017-12-15] MEDS: MEMANTINE HCL 10MG TABLET PO SCH (20:48)
[2017-12-15] MEDS: AMLODIPINE 10MG TABLET PO SCH (20:48)
[2017-12-15] MEDS: ATORVASTATIN CALCIUM 10MG TABLET PO SCH (20:48)
[2017-12-15] MEDS: PAROXETINE HCL 10MG TABLET PO SCH (20:48)
[2017-12-15] MEDS: GABAPENTIN 300MG CAPSULE PO SCH (20:49)
[2017-12-15] MEDS ORDERED: MEDICATION NOT ON FORMULARY EA (Pravastatin Sodium 40 MG) PO SCH (21:00)
[2017-12-15] MEDS ORDERED: MEDICATION NOT ON FORMULARY EA (Gabapentin 300 MG) PO SCH (21:00)
[2017-12-15] MEDS ORDERED: PAROXETINE HCL 20 MG PO SCH (21:00)
[2017-12-16] VITALS: BP 136/75
[2017-12-16] MEDS: ACETAMINOPHEN 325MG TABLET PO PRN (00:06)
[2017-12-16 04:00] VITALS: BP 125/71
[2017-12-16 08:00] VITALS: BP 128/63
[2017-12-16] MEDS: ASPIRIN 81MG TABLET PO SCH (09:21)
[2017-12-16] MEDS: EZETIMIBE 10MG TABLET PO SCH (09:21)
[2017-12-16] MEDS: HYDROXYCHLOROQUINE SULFATE 200MG TABLET PO SCH (09:21)
[2017-12-16] MEDS: DICYCLOMINE HCL 10MG CAPSULE PO SCH ×3 (09:21→17:54)
[2017-12-16] MEDS: CHOLECALCIFEROL (VIT D3) 400 UNIT TABLET PO SCH (09:21)
[2017-12-16] MEDS: OMEPRAZOLE 20MG CAPSULE EXTENDED RELEASE PO SCH (09:21)
[2017-12-16] MEDS: ENOXAPARIN 30MG/0.3ML SYR SUBCUT SCH (09:22)
[2017-12-16] MEDS: DONEPEZIL HCL 23 MG PO SCH (09:22)
[2017-12-16 12:00] VITALS: BP 121/65
[2017-12-16] MEDS: ACETAMINOPHEN 500MG TABLET PO SCH ×2 (14:03→17:54)
[2017-12-16] MEDS: LIDOCAINE 5% PATCH TOP SCH (14:04)
[2017-12-16 16:00] VITALS: BP 148/75
[2017-12-16 20:00] VITALS: BP 132/70
[2017-12-16] MEDS: MEMANTINE HCL 10MG TABLET PO SCH (22:13)
[2017-12-16] MEDS: GABAPENTIN 300MG CAPSULE PO SCH (22:13)
[2017-12-16] MEDS: PAROXETINE HCL 10MG TABLET PO SCH (22:13)
[2017-12-16] MEDS: ATORVASTATIN CALCIUM 10MG TABLET PO SCH (22:13)
[2017-12-16] MEDS: AMLODIPINE 10MG TABLET PO SCH (22:14)
[2017-12-17] VITALS: BP 140/80
[2017-12-17 04:00] VITALS: BP 119/59
[2017-12-17 08:00] VITALS: BP 131/73
[2017-12-17] MEDS ORDERED: ALENDRONATE SODIUM 35MG TABLET PO SCH (09:00)
[2017-12-17] MEDS ORDERED: MEDICATION NOT ON FORMULARY EA (Alendronate Sodium 70 MG) PO SCH (09:00)
[2017-12-17] MEDS: FAMOTIDINE 20MG TABLET PO SCH (09:22)
[2017-12-17] MEDS: CHOLECALCIFEROL (VIT D3) 400 UNIT TABLET PO SCH (09:22)
[2017-12-17] MEDS: EZETIMIBE 10MG TABLET PO SCH (09:22)
[2017-12-17] MEDS: DICYCLOMINE HCL 10MG CAPSULE PO SCH ×3 (09:23→17:26)
[2017-12-17] MEDS: ACETAMINOPHEN 500MG TABLET PO SCH ×3 (09:23→17:26)
[2017-12-17] MEDS: HYDROXYCHLOROQUINE SULFATE 200MG TABLET PO SCH (09:23)
[2017-12-17] MEDS: DONEPEZIL HCL 23 MG PO SCH (09:24)
[2017-12-17] MEDS: LIDOCAINE 5% PATCH TOP SCH (09:25)
[2017-12-17 12:00] VITALS: BP 113/62
[2017-12-17 16:00] VITALS: BP 123/62
[2017-12-17] MEDS: CHLORHEXIDINE GLUCONATE 4% EXTERNAL USE TOP SCH (17:38)
[2017-12-17 20:00] VITALS: BP 122/56
[2017-12-17] MEDS: ATORVASTATIN CALCIUM 10MG TABLET PO SCH (21:57)
[2017-12-17] MEDS: GABAPENTIN 300MG CAPSULE PO SCH (21:57)
[2017-12-17] MEDS: AMLODIPINE 10MG TABLET PO SCH (21:57)
[2017-12-17] MEDS: MEMANTINE HCL 10MG TABLET PO SCH (22:04)
[2017-12-17] MEDS: PAROXETINE HCL 10MG TABLET PO SCH (22:04)
[2017-12-18] VITALS: BP 137/69
[2017-12-18 04:00] VITALS: BP 122/54
[2017-12-18 07:00] LABS: BASOPHILS % 0.7 % (0.0-2.0); EOSINOPHILS % 3.1 % (0.0-5.0); HEMATOCRIT. 33.1 % (36.0-48.0); HEMOGLOBIN. 10.9 g/dL (12.0-16.0); LYMPHOCYTES % 15.3 % (20.0-50.0); MEAN CORPUSCULAR VOLUME 84.8 fL (81.0-99.0); MEAN PLATELET VOLUME 9.3 fl (7.4-10.4); MONOCYTES % 7.8 % (2.0-8.0); NEUTROPHILS % 73.1 % (40.0-76.0); PLATELET 121 x1000/uL (130-400); RED BLOOD CELL COUNT 3.91 mill/uL (4.2-5.4)
[2017-12-18 08:00] VITALS: BP 133/67
[2017-12-18] MEDS: HYDROXYCHLOROQUINE SULFATE 200MG TABLET PO SCH (09:00)
[2017-12-18] MEDS: LIDOCAINE 5% PATCH TOP SCH (09:00)
[2017-12-18] MEDS: ACETAMINOPHEN 500MG TABLET PO SCH ×3 (09:00→17:58)
[2017-12-18] MEDS: DICYCLOMINE HCL 10MG CAPSULE PO SCH ×3 (09:00→17:58)
[2017-12-18] MEDS: FAMOTIDINE 20MG TABLET PO SCH (09:00)
[2017-12-18] MEDS: CHOLECALCIFEROL (VIT D3) 400 UNIT TABLET PO SCH (09:00)
[2017-12-18] MEDS: DONEPEZIL HCL 23 MG PO SCH (09:00)
[2017-12-18] MEDS: EZETIMIBE 10MG TABLET PO SCH (09:00)
[2017-12-18] MEDS ORDERED: DOCUSATE SODIUM 100MG CAPSULE PO SCH (09:00)
[2017-12-18] MEDS: CHLORHEXIDINE GLUCONATE 4% EXTERNAL USE TOP SCH (10:20)
[2017-12-18 12:00] VITALS: BP 125/66
[2017-12-18] MEDS ORDERED: BACITRACIN ZINC 15GM TUBE TOP ONE (13:36)
[2017-12-18] MEDS ORDERED: BUPIVACAINE HCL/PF 0.25% (2.5MG/ML) 10ML ONE (13:37)
[2017-12-18] MEDS ORDERED: VANCOMYCIN HCL 500 MG/VIAL ONE (13:37)
[2017-12-18] MEDS ORDERED: SUCCINYLCHOLINE CHLORIDE 200MG/10ML IV ONE (14:29)
[2017-12-18] MEDS ORDERED: NEOSTIGMINE METHYLSULFATE 1MG/ML 10 ML VIAL ONE (14:29)
[2017-12-18] MEDS ORDERED: METOCLOPRAMIDE HCL 10MG/2ML VIAL ONE (14:29)
[2017-12-18] MEDS ORDERED: SODIUM CHLORIDE 0.9% 10ML VIAL ONE (14:29)
[2017-12-18] MEDS ORDERED: GLYCOPYRROLATE 0.2 MG/ML 2ML VIAL ONE (14:29)
[2017-12-18] MEDS ORDERED: ROCURONIUM BROMIDE 10MG/ML VIAL 5ML IV ONE (14:29)
[2017-12-18] MEDS ORDERED: PROPOFOL 200MG/20ML VIAL IV ONE (14:29)
[2017-12-18] MEDS ORDERED: MIDAZOLAM HCL 2 MG/2 ML VIAL ONE ×2 (14:29→15:04)
[2017-12-18] MEDS ORDERED: EPHEDRINE SULFATE 50MG/ML VIAL ONE (14:29)
[2017-12-18] MEDS ORDERED: ONDANSETRON HCL 4MG/2ML INJ ONE (14:29)
[2017-12-18] MEDS ORDERED: LIDOCAINE HCL/PF 1% 10 MG/ML 5ML VIAL ONE (14:29)
[2017-12-18] MEDS ORDERED: FENTANYL CITRATE/PF 50MCG/ML 2ML VIAL ONE (14:29)
[2017-12-18] MEDS ORDERED: CEFAZOLIN SODIUM 1000MG/VIAL ONE (14:29)
[2017-12-18] MEDS ORDERED: PHENYLEPHRINE HCL 10 MG/ML 1ML (IV VIAL) IV ONE (14:29)
[2017-12-18] MEDS ORDERED: BUPIVACAINE HCL/DEXTROSE/PF 0.75% 2ML AMP INJ ONE (14:31)
[2017-12-18] MEDS ORDERED: PROPOFOL 10MG/ML 100ML 100 ML IV ONE (14:46)
[2017-12-18] MEDS ORDERED: SKIN ADHESIVE 0.7 GM EA TOP ONE (15:27)
[2017-12-18] MEDS ORDERED: ONDANSETRON HCL 4MG/2ML INJ IV PRN (16:00)
[2017-12-18] MEDS ORDERED: SODIUM CHLORIDE 0.9% 1,000 ML IV ONE (16:00)
[2017-12-18] MEDS ORDERED: HYDROMORPHONE HCL/PF 2MG/ML CPJ IV PRN (16:00)
[2017-12-18] MEDS ORDERED: MORPHINE SULFATE 4 MG/ML CPJ (NOT FOR IM USE) IV PRN (16:45)
[2017-12-18] MEDS ORDERED: ACETAMINOPHEN 325MG TABLET PO PRN (16:45)
[2017-12-18] MEDS ORDERED: TRAMADOL 50MG TABLET PO PRN (16:45)
[2017-12-18 17:50] VITALS: BP 114/61
[2017-12-18 20:00] VITALS: BP 113/59
[2017-12-18] MEDS: ATORVASTATIN CALCIUM 10MG TABLET PO SCH (21:40)
[2017-12-18] MEDS: GABAPENTIN 300MG CAPSULE PO SCH (21:41)
[2017-12-18] MEDS: MEMANTINE HCL 10MG TABLET PO SCH (21:41)
[2017-12-18] MEDS: PAROXETINE HCL 10MG TABLET PO SCH (21:42)
[2017-12-18] MEDS: AMLODIPINE 10MG TABLET PO SCH (21:42)
[2017-12-19] VITALS: BP 106/48
[2017-12-19] MEDS: CEFAZOLIN 2,000 MG in DEXT 5% WATER 100 ML IV SCH ×2 (00:15→06:54)
[2017-12-19] MEDS: MORPHINE SULFATE 4 MG/ML CPJ (NOT FOR IM USE) IV PRN ×3 (00:28→14:51)
[2017-12-19 04:00] VITALS: BP 100/52
[2017-12-19 08:00] VITALS: BP 124/61
[2017-12-19] MEDS: ENOXAPARIN 30MG/0.3ML SYR SUBCUT SCH (08:26)
[2017-12-19] MEDS: HYDROXYCHLOROQUINE SULFATE 200MG TABLET PO SCH (08:28)
[2017-12-19] MEDS: EZETIMIBE 10MG TABLET PO SCH (08:28)
[2017-12-19] MEDS: DICYCLOMINE HCL 10MG CAPSULE PO SCH ×3 (08:28→17:17)
[2017-12-19] MEDS: FAMOTIDINE 20MG TABLET PO SCH (08:28)
[2017-12-19] MEDS: ACETAMINOPHEN 500MG TABLET PO SCH ×3 (08:28→17:17)
[2017-12-19] MEDS: CHOLECALCIFEROL (VIT D3) 400 UNIT TABLET PO SCH (08:29)
[2017-12-19] MEDS: DONEPEZIL HCL 23 MG PO SCH (08:30)
[2017-12-19] MEDS: LIDOCAINE 5% PATCH TOP SCH (08:31)
[2017-12-19 12:00] VITALS: BP 99/49
[2017-12-19] MEDS ORDERED: LACTULOSE 20G/30ML UDC PO NR (13:40)
[2017-12-19] MEDS: DOCUSATE SODIUM 100MG CAPSULE PO SCH ×2 (14:51→17:16)
[2017-12-19 16:00] VITALS: BP 113/55
[2017-12-19 20:00] VITALS: BP 111/55
[2017-12-19] MEDS: MEMANTINE HCL 10MG TABLET PO SCH (20:46)
[2017-12-19] MEDS: POLYETHYLENE GLYCOL 3350 (17GM) 1 DOSE PACK PO SCH (20:46)
[2017-12-19] MEDS: AMLODIPINE 10MG TABLET PO SCH (20:46)
[2017-12-19] MEDS: ATORVASTATIN CALCIUM 10MG TABLET PO SCH (20:46)
[2017-12-19] MEDS: GABAPENTIN 300MG CAPSULE PO SCH (20:46)
[2017-12-19] MEDS: PAROXETINE HCL 10MG TABLET PO SCH (20:48)
[2017-12-20] VITALS (9 sets, daily range): BP systolic 83–143; BP diastolic 41–98
[2017-12-20] MEDS: DICYCLOMINE HCL 10MG CAPSULE PO SCH ×3 (08:30→18:33)
[2017-12-20] MEDS: HYDROXYCHLOROQUINE SULFATE 200MG TABLET PO SCH (08:30)
[2017-12-20] MEDS: FAMOTIDINE 20MG TABLET PO SCH (08:30)
[2017-12-20] MEDS: CHOLECALCIFEROL (VIT D3) 400 UNIT TABLET PO SCH (08:30)
[2017-12-20] MEDS: ACETAMINOPHEN 500MG TABLET PO SCH ×3 (08:30→18:33)
[2017-12-20] MEDS: EZETIMIBE 10MG TABLET PO SCH (08:30)
[2017-12-20] MEDS: DOCUSATE SODIUM 100MG CAPSULE PO SCH ×2 (08:30→18:33)
[2017-12-20] MEDS: ENOXAPARIN 30MG/0.3ML SYR SUBCUT SCH (08:30)
[2017-12-20] MEDS: LIDOCAINE 5% PATCH TOP SCH (08:36)
[2017-12-20] MEDS: DONEPEZIL HCL 23 MG PO SCH (09:00)
[2017-12-20] MEDS: MEMANTINE HCL 10MG TABLET PO SCH (22:21)
[2017-12-20] MEDS: AMLODIPINE 10MG TABLET PO SCH (22:21)
[2017-12-20] MEDS: PAROXETINE HCL 10MG TABLET PO SCH (22:22)
[2017-12-20] MEDS: ATORVASTATIN CALCIUM 10MG TABLET PO SCH (22:22)
[2017-12-20] MEDS: GABAPENTIN 300MG CAPSULE PO SCH (22:22)
[2017-12-20] MEDS: POLYETHYLENE GLYCOL 3350 (17GM) 1 DOSE PACK PO SCH (22:23)
== END 2017-12-20 23:00 | DRG 481 ==
LOC: ER 12:47 → EDBEDREQ 15:56 → 7WST 16:36 → EDBEDREQTM 16:38 → EDBEDREQ 16:38 → ENRESERV 18:39 → CANRESERV 18:39 → ENRESERV 20:05
PROVIDERS: ADMIT Internal Medicine Pulmonary Disease; ATTEND Internal Medicine Pulmonary Disease
PROC: 2W3HX1Z Immobilization of Left Thumb using Splint (ICD-10-PCS; 2017-12-14)
PROC: 0QH634Z Insertion of Internal Fixation Device into Right Upper Femur, Percutaneous Approach (ICD-10-PCS; principal; 2017-12-18 14:30)
DX: S72.001A Fracture of unspecified part of neck of right femur, initial encounter for closed fracture (principal); N17.9 Acute kidney failure, unspecified; W18.30XA Fall on same level, unspecified, initial encounter; J44.9 Chronic obstructive pulmonary disease, unspecified; M06.9 Rheumatoid arthritis, unspecified; K58.9 Irritable bowel syndrome, unspecified; Z88.0 Allergy status to penicillin; Z79.899 Other long term (current) drug therapy; D64.9 Anemia, unspecified; D72.829 Elevated white blood cell count, unspecified; S62.525A Nondisplaced fracture of distal phalanx of left thumb, initial encounter for closed fracture; E78.5 Hyperlipidemia, unspecified; F03.90 Unspecified dementia, unspecified severity, without behavioral disturbance, psychotic disturbance, mood disturbance, and anxiety; F32.9 Major depressive disorder, single episode, unspecified; G62.9 Polyneuropathy, unspecified; S80.01XA Contusion of right knee, initial encounter; I10 Essential (primary) hypertension; E04.1 Nontoxic single thyroid nodule; R26.9 Unspecified abnormalities of gait and mobility; M13.0 Polyarthritis, unspecified; M48.061 Spinal stenosis, lumbar region without neurogenic claudication; M81.0 Age-related osteoporosis without current pathological fracture; W18.39XA Other fall on same level, initial encounter; Y93.89 Activity, other specified; Y92.89 Other specified places as the place of occurrence of the external cause; Y99.8 Other external cause status; Z85.038 Personal history of other malignant neoplasm of large intestine; Z85.118 Personal history of other malignant neoplasm of bronchus and lung; Z87.891 Personal history of nicotine dependence; Z95.2 Presence of prosthetic heart valve
CPT/HCPCS: 29125; 36415; 71045; 72192; 73080; 73140; 73502; 73503; 73560; 73610; 73700; 80048; 86850; 86900; 93005; 96360; 97162; 97164; 97166; 97530; 99285; A4216; C1713; J0330; J0690; J1650; J2250; J2270; J2370; J2405; J2704; J2710; J2765; J3010; J3370; J3490; J7030; J7040; J7060

== ENCOUNTER 2017-12-20 22:45 | Inpatient (IN) | payer MEDICARE, BC ==
[~2017-12-20] VITALS: Ht 165.1 cm; Wt 51.3 kg
[~2017-12-20 22:45] MED LIST changes: +ALEN70TA46 PO; +AMLO10TA80 MT; +ASPI-1159 MT; +DICY10CA88 MT; +ERGO400C MT; +MEMA10TA19 PO
[2017-12-20 23:00] VITALS: BP 137/72
[2017-12-21] MEDS ORDERED: MORPHINE SULFATE 4 MG/ML CPJ (NOT FOR IM USE) IV PRN ×2
[2017-12-21] MEDS ORDERED: ACETAMINOPHEN 325MG TABLET PO PRN ×2
[2017-12-21 06:30] LABS: BASOPHILS % 0.6 % (0.0-2.0); EOSINOPHILS % 2.3 % (0.0-5.0); HEMATOCRIT. 29.8 % (36.0-48.0); HEMOGLOBIN. 10.3 g/dL (12.0-16.0); LYMPHOCYTES % 13.3 % (20.0-50.0); MEAN CORPUSCULAR HEMOGLOBIN 29.1 pg (28.0-32.0); MEAN CORPUSCULAR VOLUME 84.6 fL (81.0-99.0); MEAN PLATELET VOLUME 9.3 fl (7.4-10.4); MONOCYTES % 8.2 % (2.0-8.0); NEUTROPHILS % 75.6 % (40.0-76.0); PLATELET 145 x1000/uL (130-400); RED BLOOD CELL COUNT 3.53 mill/uL (4.2-5.4); RED CELL DISTRIBUTION WIDTH 14.1 % (11.6-14.6)
[2017-12-21] MEDS: TRAMADOL 50MG TABLET PO PRN ×2 (06:54→13:43)
[2017-12-21 07:07] LABS: CHLORIDE 104 mEq/L (98-107)
[2017-12-21 08:00] VITALS: BP 128/70
[2017-12-21] MEDS: DICYCLOMINE HCL 10MG CAPSULE PO SCH ×3 (08:43→18:45)
[2017-12-21] MEDS: DOCUSATE SODIUM 100MG CAPSULE PO SCH ×2 (08:43→18:45)
[2017-12-21] MEDS: ENOXAPARIN 30MG/0.3ML SYR SUBCUT SCH (08:43)
[2017-12-21] MEDS: EZETIMIBE 10MG TABLET PO SCH (08:43)
[2017-12-21] MEDS: FAMOTIDINE 20MG TABLET PO SCH (08:44)
[2017-12-21] MEDS: HYDROXYCHLOROQUINE SULFATE 200MG TABLET PO SCH (08:44)
[2017-12-21] MEDS: ACETAMINOPHEN 500MG TABLET PO SCH ×3 (08:45→18:46)
[2017-12-21] MEDS: LIDOCAINE 5% PATCH TOP SCH (08:51)
[2017-12-21 08:54] LABS: BG BASE EXCESS 5.3 mmol/L (-2.0-2.0); BG CARBOXYHEMOGLOBIN 0.8 % (0.5-1.5); BG DEOXYHEMOGLOBIN 11.5 % (0.0-5.0); BG FRACTION INSPIRED OXYGEN 21; BG HCO3 ACT 28.6 mmol/L (22.0-26.0); BG METHEMOGLOBIN 0.1 % (0.0-1.5); BG OXYGEN SATURATION 88.4 % (92.0-98.5); BG OXYHEMOGLOBIN 87.6 % (94.0-97.0); BG PCO2 37.4 mmHg (35.0-45.0); BG PH 7.502 (7.350-7.450); BG PO2 51.7 mmHg (75.0-100.0); BG SAMPLE SITE LEFT RADIAL; BG TOTAL HEMOGLOBIN 11.7 g/dL (12.0-18.0); BG VENT MODE ROOM AIR
[2017-12-21] MEDS ORDERED: NON FORMULARY PATIENT HOME MED EA XX SCH (09:00)
[2017-12-21] MEDS ORDERED: IPRATROPIUM/ALBUTEROL 0.5-3(2.5)MG/3ML NEB HHN PRN (12:30)
[2017-12-21] MEDS ORDERED: LACTULOSE 20G/30ML UDC PO PRN (12:45)
[2017-12-21] MEDS: CHOLECALCIFEROL (VIT D3) 400 UNIT TABLET PO SCH (13:46)
[2017-12-21] MEDS ORDERED: IOHEXOL-350 100 ML BOTTLE ONE (16:43)
[2017-12-21 20:00] VITALS: BP 118/62
[2017-12-21] MEDS: POLYETHYLENE GLYCOL 3350 (17GM) 1 DOSE PACK PO SCH (21:00)
[2017-12-21] MEDS: AMLODIPINE 10MG TABLET PO SCH (21:00)
[2017-12-21] MEDS: IPRATROPIUM/ALBUTEROL 0.5-3(2.5)MG/3ML NEB HHN SCH (21:45)
[2017-12-21] MEDS: DONEPEZIL 23 MG PO SCH (22:08)
[2017-12-21] MEDS: MEMANTINE HCL 10MG TABLET PO SCH (22:11)
[2017-12-21] MEDS: GABAPENTIN 300MG CAPSULE PO SCH (22:11)
[2017-12-21] MEDS: ATORVASTATIN CALCIUM 10MG TABLET PO SCH (22:11)
[2017-12-21] MEDS: PAROXETINE HCL 10MG TABLET PO SCH (22:12)
[2017-12-21 23:46] VITALS: BP 120/63
[2017-12-22] MEDS: IPRATROPIUM/ALBUTEROL 0.5-3(2.5)MG/3ML NEB HHN SCH ×3 (01:10→14:36)
[2017-12-22 07:32] LABS: BASOPHILS % 0.5 % (0.0-2.0); HEMATOCRIT. 31.1 % (36.0-48.0); HEMOGLOBIN. 10.3 g/dL (12.0-16.0); MEAN CORPUSCULAR VOLUME 84.5 fL (81.0-99.0); MEAN PLATELET VOLUME 9.2 fl (7.4-10.4); MONOCYTES % 8.2 % (2.0-8.0); NEUTROPHILS % 71.3 % (40.0-76.0); PLATELET 163 x1000/uL (130-400); RED BLOOD CELL COUNT 3.68 mill/uL (4.2-5.4); RED CELL DISTRIBUTION WIDTH 13.9 % (11.6-14.6)
[2017-12-22 08:00] VITALS: BP 139/64
[2017-12-22 08:40] LABS: BG BASE EXCESS 3.7 mmol/L (-2.0-2.0); BG CARBOXYHEMOGLOBIN 0.5 % (0.5-1.5); BG FRACTION INSPIRED OXYGEN 28; BG HCO3 ACT 27.6 mmol/L (22.0-26.0); BG METHEMOGLOBIN 0.3 % (0.0-1.5); BG OXYHEMOGLOBIN 93.2 % (94.0-97.0); BG PCO2 39.4 mmHg (35.0-45.0); BG PH 7.464 (7.350-7.450); BG PO2 71.2 mmHg (75.0-100.0); BG SAMPLE SITE RIGHT BRACHIAL; BG TOTAL HEMOGLOBIN 10.6 g/dL (12.0-18.0); BG VENT MODE NASAL CANNULA
[2017-12-22] MEDS: DOCUSATE SODIUM 100MG CAPSULE PO SCH ×2 (09:17→17:26)
[2017-12-22] MEDS: CHOLECALCIFEROL (VIT D3) 400 UNIT TABLET PO SCH (09:17)
[2017-12-22] MEDS: FAMOTIDINE 20MG TABLET PO SCH (09:17)
[2017-12-22] MEDS: EZETIMIBE 10MG TABLET PO SCH (09:18)
[2017-12-22] MEDS: HYDROXYCHLOROQUINE SULFATE 200MG TABLET PO SCH (09:18)
[2017-12-22] MEDS: ENOXAPARIN 30MG/0.3ML SYR SUBCUT SCH (09:18)
[2017-12-22] MEDS: DICYCLOMINE HCL 10MG CAPSULE PO SCH ×3 (09:18→17:27)
[2017-12-22] MEDS: ACETAMINOPHEN 500MG TABLET PO SCH ×3 (09:19→17:27)
[2017-12-22] MEDS: LIDOCAINE 5% PATCH TOP SCH (09:19)
[2017-12-22 20:00] VITALS: BP 137/67
[2017-12-22] MEDS: POLYETHYLENE GLYCOL 3350 (17GM) 1 DOSE PACK PO SCH (21:12)
[2017-12-22] MEDS: DONEPEZIL 23 MG PO SCH (21:13)
[2017-12-22] MEDS: MEMANTINE HCL 10MG TABLET PO SCH (21:13)
[2017-12-22] MEDS: AMLODIPINE 10MG TABLET PO SCH (21:13)
[2017-12-22] MEDS: ATORVASTATIN CALCIUM 10MG TABLET PO SCH (21:13)
[2017-12-22] MEDS: PAROXETINE HCL 10MG TABLET PO SCH (21:13)
[2017-12-22] MEDS: GABAPENTIN 300MG CAPSULE PO SCH (21:13)
[2017-12-23] MEDS: IPRATROPIUM/ALBUTEROL 0.5-3(2.5)MG/3ML NEB HHN SCH ×5 (01:26→19:37)
[2017-12-23 07:12] LABS: BASOPHILS % 0.6 % (0.0-2.0); EOSINOPHILS % 3.2 % (0.0-5.0); HEMATOCRIT. 31.2 % (36.0-48.0); HEMOGLOBIN. 10.3 g/dL (12.0-16.0); LYMPHOCYTES % 15.9 % (20.0-50.0); MEAN CORPUSCULAR HEMOGLOBIN 27.9 pg (28.0-32.0); MEAN CORPUSCULAR VOLUME 84.4 fL (81.0-99.0); MEAN PLATELET VOLUME 9.2 fl (7.4-10.4); MONOCYTES % 6.7 % (2.0-8.0); NEUTROPHILS % 73.6 % (40.0-76.0); PLATELET 190 x1000/uL (130-400); RED BLOOD CELL COUNT 3.69 mill/uL (4.2-5.4); RED CELL DISTRIBUTION WIDTH 13.7 % (11.6-14.6)
[2017-12-23 07:57] LABS: PHOSPHORUS 4.1 mg/dL (2.5-4.9)
[2017-12-23 08:00] VITALS: BP 102/49
[2017-12-23] MEDS: DOCUSATE SODIUM 100MG CAPSULE PO SCH ×2 (08:41→17:45)
[2017-12-23] MEDS: DICYCLOMINE HCL 10MG CAPSULE PO SCH ×3 (08:41→17:45)
[2017-12-23] MEDS: HYDROXYCHLOROQUINE SULFATE 200MG TABLET PO SCH (08:41)
[2017-12-23] MEDS: FAMOTIDINE 20MG TABLET PO SCH (08:41)
[2017-12-23] MEDS: CHOLECALCIFEROL (VIT D3) 400 UNIT TABLET PO SCH (08:41)
[2017-12-23] MEDS: EZETIMIBE 10MG TABLET PO SCH (08:41)
[2017-12-23] MEDS: ACETAMINOPHEN 500MG TABLET PO SCH ×3 (08:42→17:45)
[2017-12-23] MEDS: ENOXAPARIN 30MG/0.3ML SYR SUBCUT SCH (08:42)
[2017-12-23] MEDS: LIDOCAINE 5% PATCH TOP SCH (08:49)
[2017-12-23 10:33] LABS: FERRITIN 502 ng/mL (10-291)
[2017-12-23 12:18] LABS: FOLIC ACID (FOLATE) SERUM >20 ng/mL ng/mL (>5.38); VITAMIN B12 SERUM 720 pg/mL (211-911)
[2017-12-23 17:35] LABS: CLARITY URINE CLOUDY (CLEAR); COLOR URINE YELLOW (YELLOW); KETONES URINE NEGATIVE (NEGATIVE); LEUKOCYTE ESTERASE URINE TRACE (NEGATIVE); NITRITE URINE NEGATIVE (NEGATIVE); OCCULT BLOOD URINE 1+ (NEGATIVE); PH URINE 5.5 (4.5-8.0); PROTEIN URINE TRACE (NEGATIVE); SPECIFIC GRAVITY URINE 1.015 (1.005-1.030)
[2017-12-23 20:00] VITALS: BP 125/62
[2017-12-23] MEDS: MEMANTINE HCL 10MG TABLET PO SCH (20:41)
[2017-12-23] MEDS: POLYETHYLENE GLYCOL 3350 (17GM) 1 DOSE PACK PO SCH (20:41)
[2017-12-23] MEDS: GABAPENTIN 300MG CAPSULE PO SCH (20:42)
[2017-12-23] MEDS: AMLODIPINE 10MG TABLET PO SCH (20:42)
[2017-12-23] MEDS: ATORVASTATIN CALCIUM 10MG TABLET PO SCH (20:42)
[2017-12-23] MEDS: DONEPEZIL 23 MG PO SCH (20:42)
[2017-12-23] MEDS: PAROXETINE HCL 10MG TABLET PO SCH (20:42)
[2017-12-23] MEDS: IRON SUCROSE COMPLEX 100 MG in SODIUM CHLORIDE 0.9% 100 ML IV SCH (21:15)
[2017-12-24] MEDS: TRAMADOL 50MG TABLET PO PRN (06:41)
[2017-12-24] MEDS: IPRATROPIUM/ALBUTEROL 0.5-3(2.5)MG/3ML NEB HHN SCH ×3 (07:41→19:59)
[2017-12-24 08:00] VITALS: BP 117/60
[2017-12-24] MEDS: DOCUSATE SODIUM 100MG CAPSULE PO SCH ×2 (08:43→16:38)
[2017-12-24] MEDS: EZETIMIBE 10MG TABLET PO SCH (08:43)
[2017-12-24] MEDS: FAMOTIDINE 20MG TABLET PO SCH (08:43)
[2017-12-24] MEDS: CHOLECALCIFEROL (VIT D3) 400 UNIT TABLET PO SCH (08:43)
[2017-12-24] MEDS: HYDROXYCHLOROQUINE SULFATE 200MG TABLET PO SCH (08:43)
[2017-12-24] MEDS: DICYCLOMINE HCL 10MG CAPSULE PO SCH ×3 (08:43→16:38)
[2017-12-24] MEDS: ALENDRONATE SODIUM 35MG TABLET PO SCH (08:44)
[2017-12-24] MEDS: ACETAMINOPHEN 500MG TABLET PO SCH ×3 (08:44→16:38)
[2017-12-24] MEDS: LIDOCAINE 5% PATCH TOP SCH (08:45)
[2017-12-24] MEDS: ENOXAPARIN 30MG/0.3ML SYR SUBCUT SCH (08:45)
[2017-12-24 20:00] VITALS: BP 128/63
[2017-12-24] MEDS: IRON SUCROSE COMPLEX 100 MG in SODIUM CHLORIDE 0.9% 100 ML IV SCH (21:15)
[2017-12-24] MEDS: AMLODIPINE 10MG TABLET PO SCH (21:16)
[2017-12-24] MEDS: ATORVASTATIN CALCIUM 10MG TABLET PO SCH (21:16)
[2017-12-24] MEDS: PAROXETINE HCL 10MG TABLET PO SCH (21:16)
[2017-12-24] MEDS: GABAPENTIN 300MG CAPSULE PO SCH (21:16)
[2017-12-24] MEDS: POLYETHYLENE GLYCOL 3350 (17GM) 1 DOSE PACK PO SCH (21:16)
[2017-12-24] MEDS: MEMANTINE HCL 10MG TABLET PO SCH (21:16)
[2017-12-24] MEDS: DONEPEZIL 23 MG PO SCH (21:24)
[2017-12-25] MEDS: IPRATROPIUM/ALBUTEROL 0.5-3(2.5)MG/3ML NEB HHN SCH ×4 (01:44→21:30)
[2017-12-25 07:51] VITALS: BP 114/60
[2017-12-25] MEDS: FAMOTIDINE 20MG TABLET PO SCH (08:15)
[2017-12-25] MEDS: ENOXAPARIN 30MG/0.3ML SYR SUBCUT SCH (08:15)
[2017-12-25] MEDS: EZETIMIBE 10MG TABLET PO SCH (08:16)
[2017-12-25] MEDS: CHOLECALCIFEROL (VIT D3) 400 UNIT TABLET PO SCH (08:16)
[2017-12-25] MEDS: DICYCLOMINE HCL 10MG CAPSULE PO SCH ×3 (08:16→17:02)
[2017-12-25] MEDS: DOCUSATE SODIUM 100MG CAPSULE PO SCH ×2 (08:16→17:02)
[2017-12-25] MEDS: HYDROXYCHLOROQUINE SULFATE 200MG TABLET PO SCH (08:16)
[2017-12-25] MEDS: LIDOCAINE 5% PATCH TOP SCH (08:17)
[2017-12-25] MEDS: ACETAMINOPHEN 500MG TABLET PO SCH ×3 (08:17→17:03)
[2017-12-25 20:00] VITALS: BP 114/55
[2017-12-25] MEDS: POLYETHYLENE GLYCOL 3350 (17GM) 1 DOSE PACK PO SCH (21:00)
[2017-12-25] MEDS: DONEPEZIL 23 MG PO SCH (21:51)
[2017-12-25] MEDS: IRON SUCROSE COMPLEX 100 MG in SODIUM CHLORIDE 0.9% 100 ML IV SCH (21:51)
[2017-12-25] MEDS: PAROXETINE HCL 10MG TABLET PO SCH (21:52)
[2017-12-25] MEDS: AMLODIPINE 10MG TABLET PO SCH (21:52)
[2017-12-25] MEDS: MEMANTINE HCL 10MG TABLET PO SCH (21:52)
[2017-12-25] MEDS: GABAPENTIN 300MG CAPSULE PO SCH (21:52)
[2017-12-25] MEDS: ATORVASTATIN CALCIUM 10MG TABLET PO SCH (21:52)
[2017-12-26] MEDS: IPRATROPIUM/ALBUTEROL 0.5-3(2.5)MG/3ML NEB HHN SCH ×4 (01:51→21:30)
[2017-12-26 07:06] LABS: BASOPHILS % 0.7 % (0.0-2.0); EOSINOPHILS % 2.8 % (0.0-5.0); HEMOGLOBIN. 9.8 g/dL (12.0-16.0); LYMPHOCYTES % 12.5 % (20.0-50.0); MEAN CORPUSCULAR HEMOGLOBIN 28.8 pg (28.0-32.0); MEAN CORPUSCULAR VOLUME 84.7 fL (81.0-99.0); MONOCYTES % 4.8 % (2.0-8.0); NEUTROPHILS % 79.2 % (40.0-76.0); PLATELET 215 x1000/uL (130-400); RED BLOOD CELL COUNT 3.42 mill/uL (4.2-5.4); RED CELL DISTRIBUTION WIDTH 14.2 % (11.6-14.6)
[2017-12-26 07:42] LABS: CHLORIDE 106 mEq/L (98-107)
[2017-12-26 07:59] VITALS: BP 107/59
[2017-12-26 08:03] LABS: PHOSPHORUS 3.5 mg/dL (2.5-4.9)
[2017-12-26] MEDS: ENOXAPARIN 30MG/0.3ML SYR SUBCUT SCH (09:26)
[2017-12-26] MEDS: FAMOTIDINE 20MG TABLET PO SCH (09:27)
[2017-12-26] MEDS: DOCUSATE SODIUM 100MG CAPSULE PO SCH ×2 (09:27→17:03)
[2017-12-26] MEDS: CHOLECALCIFEROL (VIT D3) 400 UNIT TABLET PO SCH (09:27)
[2017-12-26] MEDS: HYDROXYCHLOROQUINE SULFATE 200MG TABLET PO SCH (09:27)
[2017-12-26] MEDS: EZETIMIBE 10MG TABLET PO SCH (09:27)
[2017-12-26] MEDS: DICYCLOMINE HCL 10MG CAPSULE PO SCH ×3 (09:27→17:03)
[2017-12-26] MEDS: ACETAMINOPHEN 500MG TABLET PO SCH ×3 (09:28→17:03)
[2017-12-26] MEDS: LIDOCAINE 5% PATCH TOP SCH (09:30)
[2017-12-26] MEDS: TRAMADOL 50MG TABLET PO PRN (13:41)
[2017-12-26 20:00] VITALS: BP 105/54
[2017-12-26] MEDS: AMLODIPINE 10MG TABLET PO SCH (21:00)
[2017-12-26] MEDS: DONEPEZIL 23 MG PO SCH (21:20)
[2017-12-26] MEDS: IRON SUCROSE COMPLEX 100 MG in SODIUM CHLORIDE 0.9% 100 ML IV SCH (21:20)
[2017-12-26] MEDS: MEMANTINE HCL 10MG TABLET PO SCH (21:20)
[2017-12-26] MEDS: POLYETHYLENE GLYCOL 3350 (17GM) 1 DOSE PACK PO SCH (21:20)
[2017-12-26] MEDS: ATORVASTATIN CALCIUM 10MG TABLET PO SCH (21:20)
[2017-12-26] MEDS: PAROXETINE HCL 10MG TABLET PO SCH (21:21)
[2017-12-26] MEDS: GABAPENTIN 300MG CAPSULE PO SCH (21:21)
[2017-12-27] MEDS: IPRATROPIUM/ALBUTEROL 0.5-3(2.5)MG/3ML NEB HHN SCH ×4 (01:40→21:05)
[2017-12-27 08:00] VITALS: BP 141/70
[2017-12-27] MEDS: TRAMADOL 50MG TABLET PO PRN ×2 (08:55→16:55)
[2017-12-27] MEDS: DOCUSATE SODIUM 100MG CAPSULE PO SCH ×2 (08:55→17:45)
[2017-12-27] MEDS: FAMOTIDINE 20MG TABLET PO SCH (08:55)
[2017-12-27] MEDS: EZETIMIBE 10MG TABLET PO SCH (08:55)
[2017-12-27] MEDS: HYDROXYCHLOROQUINE SULFATE 200MG TABLET PO SCH (08:55)
[2017-12-27] MEDS: DICYCLOMINE HCL 10MG CAPSULE PO SCH ×3 (08:55→17:45)
[2017-12-27] MEDS: CHOLECALCIFEROL (VIT D3) 400 UNIT TABLET PO SCH (08:55)
[2017-12-27] MEDS: ACETAMINOPHEN 500MG TABLET PO SCH ×3 (08:56→12:25)
[2017-12-27] MEDS: ENOXAPARIN 30MG/0.3ML SYR SUBCUT SCH (08:58)
[2017-12-27] MEDS: LIDOCAINE 5% PATCH TOP SCH (08:58)
[2017-12-27 13:06] LABS: 25-HYDROXY VITAMIN D3 31 ng/mL (.)
[2017-12-27] MEDS: ERGOCALCIFEROL 50000UNITS CAPSULE PO SCH (18:30)
[2017-12-27 20:00] VITALS: BP 129/59
[2017-12-27] MEDS: AMLODIPINE 10MG TABLET PO SCH (21:03)
[2017-12-27] MEDS: PAROXETINE HCL 10MG TABLET PO SCH (21:03)
[2017-12-27] MEDS: GABAPENTIN 300MG CAPSULE PO SCH (21:03)
[2017-12-27] MEDS: ATORVASTATIN CALCIUM 10MG TABLET PO SCH (21:03)
[2017-12-27] MEDS: POLYETHYLENE GLYCOL 3350 (17GM) 1 DOSE PACK PO SCH (21:04)
[2017-12-27] MEDS: MEMANTINE HCL 10MG TABLET PO SCH (21:04)
[2017-12-27] MEDS: DONEPEZIL 23 MG PO SCH (21:04)
[2017-12-27] MEDS: IRON SUCROSE COMPLEX 100 MG in SODIUM CHLORIDE 0.9% 100 ML IV SCH (21:04)
[2017-12-28] MEDS: IPRATROPIUM/ALBUTEROL 0.5-3(2.5)MG/3ML NEB HHN SCH ×4 (01:54→21:24)
[2017-12-28 07:57] VITALS: BP 152/76
[2017-12-28] MEDS: LIDOCAINE 5% PATCH TOP SCH (08:43)
[2017-12-28] MEDS: ENOXAPARIN 30MG/0.3ML SYR SUBCUT SCH (08:44)
[2017-12-28] MEDS: DICYCLOMINE HCL 10MG CAPSULE PO SCH ×3 (08:44→16:17)
[2017-12-28] MEDS: HYDROXYCHLOROQUINE SULFATE 200MG TABLET PO SCH (08:44)
[2017-12-28] MEDS: EZETIMIBE 10MG TABLET PO SCH (08:44)
[2017-12-28] MEDS: CHOLECALCIFEROL (VIT D3) 400 UNIT TABLET PO SCH (08:44)
[2017-12-28] MEDS: DOCUSATE SODIUM 100MG CAPSULE PO SCH ×2 (08:44→16:17)
[2017-12-28] MEDS: FAMOTIDINE 20MG TABLET PO SCH (08:44)
[2017-12-28] MEDS: ACETAMINOPHEN 500MG TABLET PO PRN ×2 (08:46→22:58)
[2017-12-28] MEDS ORDERED: ERGOCALCIFEROL 50000UNITS CAPSULE PO SCH (13:00)
[2017-12-28 20:00] VITALS: BP 118/56
[2017-12-28] MEDS: POLYETHYLENE GLYCOL 3350 (17GM) 1 DOSE PACK PO SCH (21:42)
[2017-12-28] MEDS: AMLODIPINE 10MG TABLET PO SCH (21:42)
[2017-12-28] MEDS: ATORVASTATIN CALCIUM 10MG TABLET PO SCH (21:42)
[2017-12-28] MEDS: MEMANTINE HCL 10MG TABLET PO SCH (21:42)
[2017-12-28] MEDS: PAROXETINE HCL 10MG TABLET PO SCH (21:42)
[2017-12-28] MEDS: DONEPEZIL 23 MG PO SCH (21:43)
[2017-12-28] MEDS: GABAPENTIN 300MG CAPSULE PO SCH (21:43)
[2017-12-29] MEDS: IPRATROPIUM/ALBUTEROL 0.5-3(2.5)MG/3ML NEB HHN SCH ×4 (01:43→20:40)
[2017-12-29 07:08] LABS: BASOPHILS % 0.8 % (0.0-2.0); EOSINOPHILS % 2.7 % (0.0-5.0); HEMOGLOBIN. 10.3 g/dL (12.0-16.0); LYMPHOCYTES % 18.3 % (20.0-50.0); MEAN CORPUSCULAR HEMOGLOBIN 29.1 pg (28.0-32.0); MEAN CORPUSCULAR VOLUME 84.6 fL (81.0-99.0); MONOCYTES % 7.3 % (2.0-8.0); NEUTROPHILS % 70.9 % (40.0-76.0); PLATELET 235 x1000/uL (130-400); RED BLOOD CELL COUNT 3.54 mill/uL (4.2-5.4); RED CELL DISTRIBUTION WIDTH 14.2 % (11.6-14.6)
[2017-12-29 08:02] LABS: CHLORIDE 106 mEq/L (98-107)
[2017-12-29 08:15] VITALS: BP 100/63
[2017-12-29] MEDS: ENOXAPARIN 30MG/0.3ML SYR SUBCUT SCH (08:45)
[2017-12-29] MEDS: ACETAMINOPHEN 500MG TABLET PO PRN (08:46)
[2017-12-29] MEDS: LIDOCAINE 5% PATCH TOP SCH (08:46)
[2017-12-29] MEDS: TRAMADOL 50MG TABLET PO PRN (08:47)
[2017-12-29] MEDS: EZETIMIBE 10MG TABLET PO SCH (08:48)
[2017-12-29] MEDS: DOCUSATE SODIUM 100MG CAPSULE PO SCH ×2 (08:48→16:58)
[2017-12-29] MEDS: HYDROXYCHLOROQUINE SULFATE 200MG TABLET PO SCH (08:48)
[2017-12-29] MEDS: FAMOTIDINE 20MG TABLET PO SCH (08:48)
[2017-12-29] MEDS: DICYCLOMINE HCL 10MG CAPSULE PO SCH ×3 (08:49→16:58)
[2017-12-29] MEDS: CHOLECALCIFEROL (VIT D3) 400 UNIT TABLET PO SCH (08:55)
[2017-12-29] MEDS ORDERED: OXYCODONE HCL 5MG TABLET PO PRN (11:00)
[2017-12-29 20:00] VITALS: BP 130/61
[2017-12-29] MEDS: ATORVASTATIN CALCIUM 10MG TABLET PO SCH (21:27)
[2017-12-29] MEDS: DONEPEZIL 23 MG PO SCH (21:28)
[2017-12-29] MEDS: POLYETHYLENE GLYCOL 3350 (17GM) 1 DOSE PACK PO SCH (21:28)
[2017-12-29] MEDS: MEMANTINE HCL 10MG TABLET PO SCH (21:28)
[2017-12-29] MEDS: AMLODIPINE 10MG TABLET PO SCH (21:28)
[2017-12-29] MEDS: GABAPENTIN 300MG CAPSULE PO SCH (21:28)
[2017-12-29] MEDS: PAROXETINE HCL 10MG TABLET PO SCH (21:29)
[2017-12-30] MEDS: IPRATROPIUM/ALBUTEROL 0.5-3(2.5)MG/3ML NEB HHN SCH ×3 (01:50→20:00)
[2017-12-30 06:32] LABS: CHLORIDE 104 mEq/L (98-107)
[2017-12-30 08:26] VITALS: BP 142/70
[2017-12-30] MEDS: ENOXAPARIN 30MG/0.3ML SYR SUBCUT SCH (09:19)
[2017-12-30] MEDS: EZETIMIBE 10MG TABLET PO SCH (09:20)
[2017-12-30] MEDS: LIDOCAINE 5% PATCH TOP SCH (09:20)
[2017-12-30] MEDS: FAMOTIDINE 20MG TABLET PO SCH (09:21)
[2017-12-30] MEDS: CHOLECALCIFEROL (VIT D3) 400 UNIT TABLET PO SCH (09:21)
[2017-12-30] MEDS: HYDROXYCHLOROQUINE SULFATE 200MG TABLET PO SCH (09:21)
[2017-12-30] MEDS: DOCUSATE SODIUM 100MG CAPSULE PO SCH ×2 (09:21→17:40)
[2017-12-30] MEDS: DICYCLOMINE HCL 10MG CAPSULE PO SCH ×3 (09:21→17:40)
[2017-12-30 20:00] VITALS: BP 140/68
[2017-12-30] MEDS: POLYETHYLENE GLYCOL 3350 (17GM) 1 DOSE PACK PO SCH (21:57)
[2017-12-30] MEDS: PAROXETINE HCL 10MG TABLET PO SCH (22:24)
[2017-12-30] MEDS: ATORVASTATIN CALCIUM 10MG TABLET PO SCH (22:24)
[2017-12-30] MEDS: AMLODIPINE 10MG TABLET PO SCH (22:24)
[2017-12-30] MEDS: GABAPENTIN 300MG CAPSULE PO SCH (22:25)
[2017-12-30] MEDS: MEMANTINE HCL 10MG TABLET PO SCH (22:25)
[2017-12-30] MEDS: DONEPEZIL 23 MG PO SCH (22:28)
[2017-12-31] MEDS: IPRATROPIUM/ALBUTEROL 0.5-3(2.5)MG/3ML NEB HHN SCH ×4 (02:00→19:58)
[2017-12-31 08:00] VITALS: BP 120/65
[2017-12-31] MEDS: CHOLECALCIFEROL (VIT D3) 400 UNIT TABLET PO SCH (08:43)
[2017-12-31] MEDS: DOCUSATE SODIUM 100MG CAPSULE PO SCH ×2 (08:43→16:58)
[2017-12-31] MEDS: HYDROXYCHLOROQUINE SULFATE 200MG TABLET PO SCH (08:43)
[2017-12-31] MEDS: ENOXAPARIN 30MG/0.3ML SYR SUBCUT SCH (08:43)
[2017-12-31] MEDS: FAMOTIDINE 20MG TABLET PO SCH (08:43)
[2017-12-31] MEDS: DICYCLOMINE HCL 10MG CAPSULE PO SCH ×3 (08:43→16:58)
[2017-12-31] MEDS: EZETIMIBE 10MG TABLET PO SCH (08:43)
[2017-12-31] MEDS: LIDOCAINE 5% PATCH TOP SCH (08:44)
[2017-12-31] MEDS: ALENDRONATE SODIUM 35MG TABLET PO SCH (08:47)
[2017-12-31 20:00] VITALS: BP 121/56
[2017-12-31] MEDS: DONEPEZIL 23 MG PO SCH (20:27)
[2017-12-31] MEDS: POLYETHYLENE GLYCOL 3350 (17GM) 1 DOSE PACK PO SCH (20:27)
[2017-12-31] MEDS: GABAPENTIN 300MG CAPSULE PO SCH (20:28)
[2017-12-31] MEDS: ATORVASTATIN CALCIUM 10MG TABLET PO SCH (20:28)
[2017-12-31] MEDS: AMLODIPINE 10MG TABLET PO SCH (20:28)
[2017-12-31] MEDS: PAROXETINE HCL 10MG TABLET PO SCH (20:28)
[2017-12-31] MEDS: MEMANTINE HCL 10MG TABLET PO SCH (20:28)
[2018-01-01] MEDS: IPRATROPIUM/ALBUTEROL 0.5-3(2.5)MG/3ML NEB HHN SCH ×3 (02:02→20:35)
[2018-01-01 07:40] LABS: BG BASE EXCESS 2.3 mmol/L (-2.0-2.0); BG CARBOXYHEMOGLOBIN 0.1 % (0.5-1.5); BG DEOXYHEMOGLOBIN 7.5 % (0.0-5.0); BG HCO3 ACT 26.4 mmol/L (22.0-26.0); BG METHEMOGLOBIN 0.3 % (0.0-1.5); BG OXYGEN SATURATION 92.5 % (92.0-98.5); BG OXYHEMOGLOBIN 92.1 % (94.0-97.0); BG PH 7.449 (7.350-7.450); BG PO2 64.4 mmHg (75.0-100.0); BG SAMPLE SITE RIGHT RADIAL; BG TOTAL HEMOGLOBIN 10.6 g/dL (12.0-18.0); BG VENT MODE ROOM AIR
[2018-01-01 08:03] LABS: BASOPHILS % 0.7 % (0.0-2.0); EOSINOPHILS % 1.7 % (0.0-5.0); HEMATOCRIT. 29.7 % (36.0-48.0); HEMOGLOBIN. 10.1 g/dL (12.0-16.0); MEAN CORPUSCULAR HEMOGLOBIN 28.7 pg (28.0-32.0); MEAN CORPUSCULAR VOLUME 84.8 fL (81.0-99.0); MEAN PLATELET VOLUME 8.5 fl (7.4-10.4); MONOCYTES % 11.5 % (2.0-8.0); NEUTROPHILS % 67.1 % (40.0-76.0); PLATELET 196 x1000/uL (130-400); RED CELL DISTRIBUTION WIDTH 14.6 % (11.6-14.6)
[2018-01-01 08:15] VITALS: BP 111/61
[2018-01-01] MEDS: FAMOTIDINE 20MG TABLET PO SCH (08:35)
[2018-01-01] MEDS: DOCUSATE SODIUM 100MG CAPSULE PO SCH ×2 (08:35→17:49)
[2018-01-01] MEDS: HYDROXYCHLOROQUINE SULFATE 200MG TABLET PO SCH (08:35)
[2018-01-01] MEDS: CHOLECALCIFEROL (VIT D3) 400 UNIT TABLET PO SCH (08:35)
[2018-01-01] MEDS: DICYCLOMINE HCL 10MG CAPSULE PO SCH ×3 (08:35→17:49)
[2018-01-01] MEDS: ENOXAPARIN 30MG/0.3ML SYR SUBCUT SCH (08:36)
[2018-01-01] MEDS: EZETIMIBE 10MG TABLET PO SCH (08:36)
[2018-01-01] MEDS: LIDOCAINE 5% PATCH TOP SCH (08:38)
[2018-01-01 09:27] LABS: CHLORIDE 103 mEq/L (98-107)
[2018-01-01] MEDS ORDERED: LACTULOSE 20G/30ML UDC PO PRN (14:30)
[2018-01-01 16:00] VITALS: BP 137/60
[2018-01-01 20:00] VITALS: BP 136/66
[2018-01-01] MEDS: POLYETHYLENE GLYCOL 3350 (17GM) 1 DOSE PACK PO SCH (20:46)
[2018-01-01] MEDS: ATORVASTATIN CALCIUM 10MG TABLET PO SCH (20:46)
[2018-01-01] MEDS: GABAPENTIN 300MG CAPSULE PO SCH (20:46)
[2018-01-01] MEDS: MEMANTINE HCL 10MG TABLET PO SCH (20:46)
[2018-01-01] MEDS: AMLODIPINE 10MG TABLET PO SCH (20:46)
[2018-01-01] MEDS: TRAMADOL 50MG TABLET PO PRN (20:47)
[2018-01-01] MEDS: DONEPEZIL 23 MG PO SCH (20:47)
[2018-01-01] MEDS: PAROXETINE HCL 10MG TABLET PO SCH (20:47)
[2018-01-02] MEDS: IPRATROPIUM/ALBUTEROL 0.5-3(2.5)MG/3ML NEB HHN SCH ×4 (01:30→19:26)
[2018-01-02] MEDS: DOCUSATE SODIUM 100MG CAPSULE PO SCH ×2 (08:48→16:24)
[2018-01-02] MEDS: ENOXAPARIN 30MG/0.3ML SYR SUBCUT SCH (08:48)
[2018-01-02] MEDS: HYDROXYCHLOROQUINE SULFATE 200MG TABLET PO SCH (08:48)
[2018-01-02] MEDS: EZETIMIBE 10MG TABLET PO SCH (08:48)
[2018-01-02] MEDS: DICYCLOMINE HCL 10MG CAPSULE PO SCH ×3 (08:48→16:24)
[2018-01-02] MEDS: FAMOTIDINE 20MG TABLET PO SCH (08:48)
[2018-01-02] MEDS: LIDOCAINE 5% PATCH TOP SCH (08:49)
[2018-01-02] MEDS: CHOLECALCIFEROL (VIT D3) 400 UNIT TABLET PO SCH (08:50)
[2018-01-02] MEDS: TRAMADOL 50MG TABLET PO PRN (09:40)
[2018-01-02 10:36] VITALS: BP 120/62
[2018-01-02 20:00] VITALS: BP 108/56
[2018-01-02] MEDS: AMLODIPINE 10MG TABLET PO SCH (21:00)
[2018-01-02] MEDS: PAROXETINE HCL 10MG TABLET PO SCH (21:59)
[2018-01-02] MEDS: DONEPEZIL 23 MG PO SCH (21:59)
[2018-01-02] MEDS: GABAPENTIN 300MG CAPSULE PO SCH (21:59)
[2018-01-02] MEDS: MEMANTINE HCL 10MG TABLET PO SCH (21:59)
[2018-01-02] MEDS: POLYETHYLENE GLYCOL 3350 (17GM) 1 DOSE PACK PO SCH (22:00)
[2018-01-02] MEDS: ATORVASTATIN CALCIUM 10MG TABLET PO SCH (22:42)
[2018-01-03] MEDS: IPRATROPIUM/ALBUTEROL 0.5-3(2.5)MG/3ML NEB HHN SCH ×3 (02:37→15:59)
[2018-01-03 08:00] VITALS: BP 142/67
[2018-01-03] MEDS: FAMOTIDINE 20MG TABLET PO SCH (08:57)
[2018-01-03] MEDS: DOCUSATE SODIUM 100MG CAPSULE PO SCH (08:57)
[2018-01-03] MEDS: CHOLECALCIFEROL (VIT D3) 400 UNIT TABLET PO SCH (08:57)
[2018-01-03] MEDS: DICYCLOMINE HCL 10MG CAPSULE PO SCH ×2 (08:58→13:08)
[2018-01-03] MEDS: ERGOCALCIFEROL 50000UNITS CAPSULE PO SCH (08:58)
[2018-01-03] MEDS: HYDROXYCHLOROQUINE SULFATE 200MG TABLET PO SCH (08:58)
[2018-01-03] MEDS: ENOXAPARIN 30MG/0.3ML SYR SUBCUT SCH (08:59)
[2018-01-03] MEDS: LIDOCAINE 5% PATCH TOP SCH (09:03)
[2018-01-03] MEDS: EZETIMIBE 10MG TABLET PO SCH (09:07)
[2018-01-03 11:50] VITALS: BP 142/67
== END 2018-01-03 17:56 | disposition home health service (06) | DRG 536 ==
PROVIDERS: ADMIT Physical Medicine & Rehabilitation Spinal Cord Injury Medicine; ATTEND Internal Medicine Pulmonary Disease
DX: S72.001A Fracture of unspecified part of neck of right femur, initial encounter for closed fracture (principal); J98.11 Atelectasis; I69.354 Hemiplegia and hemiparesis following cerebral infarction affecting left non-dominant side; S62.525A Nondisplaced fracture of distal phalanx of left thumb, initial encounter for closed fracture; W18.39XA Other fall on same level, initial encounter; M54.2 Cervicalgia; G89.29 Other chronic pain; J44.9 Chronic obstructive pulmonary disease, unspecified; E78.5 Hyperlipidemia, unspecified; M81.0 Age-related osteoporosis without current pathological fracture; F32.9 Major depressive disorder, single episode, unspecified; K58.9 Irritable bowel syndrome, unspecified; S80.01XA Contusion of right knee, initial encounter; R53.81 Other malaise; F03.90 Unspecified dementia, unspecified severity, without behavioral disturbance, psychotic disturbance, mood disturbance, and anxiety; M48.061 Spinal stenosis, lumbar region without neurogenic claudication; R09.02 Hypoxemia; G62.9 Polyneuropathy, unspecified; I10 Essential (primary) hypertension; M06.9 Rheumatoid arthritis, unspecified; F09 Unspecified mental disorder due to known physiological condition; S62.301A Unspecified fracture of second metacarpal bone, left hand, initial encounter for closed fracture; S62.303A Unspecified fracture of third metacarpal bone, left hand, initial encounter for closed fracture; S62.305A Unspecified fracture of fourth metacarpal bone, left hand, initial encounter for closed fracture; S62.307A Unspecified fracture of fifth metacarpal bone, left hand, initial encounter for closed fracture; S63.217A Subluxation of metacarpophalangeal joint of left little finger, initial encounter; M17.11 Unilateral primary osteoarthritis, right knee; D50.9 Iron deficiency anemia, unspecified; R29.6 Repeated falls; Y93.89 Activity, other specified; Y92.89 Other specified places as the place of occurrence of the external cause; Y99.8 Other external cause status; Z91.81 History of falling; Z85.118 Personal history of other malignant neoplasm of bronchus and lung; Z95.2 Presence of prosthetic heart valve; Z85.038 Personal history of other malignant neoplasm of large intestine; Z88.0 Allergy status to penicillin; Z79.899 Other long term (current) drug therapy; Z82.49 Family history of ischemic heart disease and other diseases of the circulatory system; Z87.891 Personal history of nicotine dependence
CPT/HCPCS: 36415; 36600; 71045; 71275; 80048; 82270; 82306; 82375; 82607; 82728; 82746; 82805; 82962; 83540; 83550; 83735; 84100; 84134; 84443; 84630; 92523; 92610; 93970; 94640; 97110; 97116; 97150; 97162; 97166; 97530; 97535; 97760; G0515; J1650; J7050; J7620; Q9967

== ENCOUNTER 2018-02-21 17:55 | Inpatient (IN) | payer MEDICARE, BC ==
[~2018-02-21] VITALS: Ht 160 cm; Wt 52.2 kg
[2018-02-21] MEDS ORDERED: LEVOFLOXACIN 750MG PREMIX 150 ML IV ONE (19:15)
[2018-02-21] MEDS ORDERED: VANCOMYCIN 1 G PREMIX 200 ML IV ONE (19:15)
[2018-02-21] MEDS ORDERED: SODIUM CHLORIDE 0.9% 500 ML IV ONE (19:15)
[2018-02-21] MEDS ORDERED: ONDANSETRON HCL 4MG/2ML INJ IV STA (19:15)
[2018-02-21 20:53] LABS: HEMOGLOBIN. 10.9 g/dL (12.0-16.0); MEAN CORPUSCULAR HEMOGLOBIN 26.9 pg (28.0-32.0); MEAN CORPUSCULAR VOLUME 83.5 fL (81.0-99.0); MEAN PLATELET VOLUME 8.1 fl (7.4-10.4); PLATELET 177 x1000/uL (130-400); RED BLOOD CELL COUNT 4.07 mill/uL (4.2-5.4); RED CELL DISTRIBUTION WIDTH 15.1 % (11.6-14.6)
[2018-02-21 20:56] LABS: CLARITY URINE CLOUDY (CLEAR); COLOR URINE YELLOW (YELLOW); KETONES URINE NEGATIVE (NEGATIVE); LEUKOCYTE ESTERASE URINE TRACE (NEGATIVE); NITRITE URINE NEGATIVE (NEGATIVE); OCCULT BLOOD URINE NEGATIVE (NEGATIVE); PROTEIN URINE NEGATIVE (NEGATIVE); SPECIFIC GRAVITY URINE 1.013 (1.005-1.030)
[2018-02-21 21:01] LABS: CHLORIDE 103 mEq/L (98-107); INR 1.1
[2018-02-21 21:44] LABS: PLATELET ESTIMATE NORMAL
[2018-02-22 02:00] VITALS: BP 117/70
[2018-02-22] MEDS ORDERED: INFLUENZA VIRUS VACCINE(AFLURIA) 0.5ML SYR IM ONE (02:45)
[2018-02-22] MEDS ORDERED: LEVOFLOXACIN 500MG PREMIX 100 ML IV SCH (03:30)
[2018-02-22 04:00] VITALS: BP 115/50
[2018-02-22] MEDS ORDERED: DOCU-150 MT (04:05)
[2018-02-22] MEDS ORDERED: PARO10TA87 MT (04:05)
[2018-02-22] MEDS ORDERED: TRAM50TA94 MT (04:05)
[2018-02-22] MEDS: TRAMADOL 50MG TABLET PO PRN ×2 (05:28→20:33)
[2018-02-22 06:47] LABS: HEMATOCRIT 32.2 % (36.0-48.0); HEMOGLOBIN 10.6 g/dL (12.0-16.0); MEAN CORPUSCULAR HEMOGLOBIN 27.5 pg (28.0-32.0); MEAN CORPUSCULAR VOLUME 83.7 fL (81.0-99.0); PLATELET 174 x1000/uL (130-400); RED BLOOD CELL COUNT 3.85 mill/uL (4.2-5.4); RED CELL DISTRIBUTION WIDTH 14.8 % (11.6-14.6)
[2018-02-22 07:09] LABS: CHLORIDE 102 mEq/L (98-107)
[2018-02-22 08:00] VITALS: BP 136/78
[2018-02-22] MEDS: HYDROXYCHLOROQUINE SULFATE 200MG TABLET PO SCH (08:11)
[2018-02-22] MEDS: DOCUSATE SODIUM 100MG CAPSULE PO SCH ×2 (08:11→16:01)
[2018-02-22] MEDS: PAROXETINE HCL 10MG TABLET PO SCH (08:11)
[2018-02-22] MEDS: CHOLECALCIFEROL (VIT D3) 400 UNIT TABLET PO SCH (08:11)
[2018-02-22] MEDS: EZETIMIBE 10MG TABLET PO SCH (08:11)
[2018-02-22] MEDS: AMLODIPINE 10MG TABLET PO SCH (08:11)
[2018-02-22] MEDS: ENOXAPARIN 30MG/0.3ML SYR SUBCUT SCH (08:13)
[2018-02-22] MEDS: POLYETHYLENE GLYCOL 3350 (17GM) 1 DOSE PACK PO SCH (08:14)
[2018-02-22] MEDS: LIDOCAINE 5% PATCH TOP SCH (08:22)
[2018-02-22 12:00] VITALS: BP 104/54
[2018-02-22 16:00] VITALS: BP 108/62
[2018-02-22] MEDS: ASCORBIC ACID 500 MG TABLET PO SCH (16:01)
[2018-02-22] MEDS: ZINC SULFATE 220 MG ( 50 ) CAPSULE PO SCH (16:01)
[2018-02-22 20:00] VITALS: BP 111/62
[2018-02-22] MEDS: LEVOFLOXACIN 250MG PREMIX 50 ML IV SCH (20:33)
[2018-02-22] MEDS: FAMOTIDINE 20MG TABLET PO SCH (20:34)
[2018-02-22] MEDS: MEMANTINE HCL 10MG TABLET PO SCH (20:34)
[2018-02-22] MEDS: ATORVASTATIN CALCIUM 10MG TABLET PO SCH (20:34)
[2018-02-22] MEDS: GABAPENTIN 300MG CAPSULE PO SCH (20:34)
[2018-02-23] VITALS: BP 114/62
[2018-02-23] MEDS: IPRATROPIUM/ALBUTEROL 0.5-3(2.5)MG/3ML NEB HHN SCH ×6 (00:38→20:52)
[2018-02-23 04:00] VITALS: BP 118/66
[2018-02-23 08:00] VITALS: BP 134/66
[2018-02-23] MEDS: PAROXETINE HCL 10MG TABLET PO SCH (08:11)
[2018-02-23] MEDS: EZETIMIBE 10MG TABLET PO SCH (08:11)
[2018-02-23] MEDS: POLYETHYLENE GLYCOL 3350 (17GM) 1 DOSE PACK PO SCH (08:11)
[2018-02-23] MEDS: ENOXAPARIN 30MG/0.3ML SYR SUBCUT SCH (08:11)
[2018-02-23] MEDS: ASCORBIC ACID 500 MG TABLET PO SCH (08:11)
[2018-02-23] MEDS: DOCUSATE SODIUM 100MG CAPSULE PO SCH ×2 (08:12→16:24)
[2018-02-23] MEDS: AMLODIPINE 10MG TABLET PO SCH (08:12)
[2018-02-23] MEDS: CHOLECALCIFEROL (VIT D3) 400 UNIT TABLET PO SCH (08:12)
[2018-02-23] MEDS: ZINC SULFATE 220 MG ( 50 ) CAPSULE PO SCH (08:12)
[2018-02-23] MEDS: LIDOCAINE 5% PATCH TOP SCH (08:14)
[2018-02-23] MEDS: HYDROXYCHLOROQUINE SULFATE 200MG TABLET PO SCH (08:14)
[2018-02-23] MEDS: TRAMADOL 50MG TABLET PO PRN ×2 (11:40→16:49)
[2018-02-23 12:00] VITALS: BP 118/69
[2018-02-23 16:00] VITALS: BP 107/59
[2018-02-23 20:00] VITALS: BP 111/57
[2018-02-23] MEDS: MEMANTINE HCL 10MG TABLET PO SCH (20:51)
[2018-02-23] MEDS: FAMOTIDINE 20MG TABLET PO SCH (20:52)
[2018-02-23] MEDS: ATORVASTATIN CALCIUM 10MG TABLET PO SCH (20:52)
[2018-02-23] MEDS: GABAPENTIN 300MG CAPSULE PO SCH (20:52)
[2018-02-23] MEDS: LEVOFLOXACIN 250MG PREMIX 50 ML IV SCH (20:53)
[2018-02-24] VITALS: BP 121/63
[2018-02-24] MEDS: IPRATROPIUM/ALBUTEROL 0.5-3(2.5)MG/3ML NEB HHN SCH ×6 (01:18→20:26)
[2018-02-24 04:00] VITALS: BP 101/49
[2018-02-24] MEDS: MORPHINE SULFATE 10MG/5ML ORAL SOLN UDC PO PRN ×2 (05:09→17:55)
[2018-02-24 08:00] VITALS: BP 105/56
[2018-02-24] MEDS: AMLODIPINE 10MG TABLET PO SCH (08:59)
[2018-02-24] MEDS: DOCUSATE SODIUM 100MG CAPSULE PO SCH ×2 (08:59→17:56)
[2018-02-24] MEDS: ZINC SULFATE 220 MG ( 50 ) CAPSULE PO SCH (08:59)
[2018-02-24] MEDS: EZETIMIBE 10MG TABLET PO SCH (08:59)
[2018-02-24] MEDS: HYDROXYCHLOROQUINE SULFATE 200MG TABLET PO SCH (09:00)
[2018-02-24] MEDS: CHOLECALCIFEROL (VIT D3) 400 UNIT TABLET PO SCH (09:00)
[2018-02-24] MEDS: ASCORBIC ACID 500 MG TABLET PO SCH (09:00)
[2018-02-24] MEDS: PAROXETINE HCL 10MG TABLET PO SCH (09:00)
[2018-02-24] MEDS: POLYETHYLENE GLYCOL 3350 (17GM) 1 DOSE PACK PO SCH (09:04)
[2018-02-24] MEDS: ENOXAPARIN 30MG/0.3ML SYR SUBCUT SCH (09:04)
[2018-02-24] MEDS: LIDOCAINE 5% PATCH TOP SCH (09:08)
[2018-02-24 12:00] VITALS: BP 111/53
[2018-02-24 16:00] VITALS: BP_SYST 111; BP_SYST 135; BP_DIAS 53; BP_DIAS 76
[2018-02-24 20:00] VITALS: BP 115/62
[2018-02-24] MEDS: ATORVASTATIN CALCIUM 10MG TABLET PO SCH (21:18)
[2018-02-24] MEDS: LEVOFLOXACIN 250MG TABLET PO SCH (21:18)
[2018-02-24] MEDS: GABAPENTIN 300MG CAPSULE PO SCH (21:19)
[2018-02-24] MEDS: FAMOTIDINE 20MG TABLET PO SCH (21:19)
[2018-02-24] MEDS: ACETAMINOPHEN 650MG/20.3ML UDC PO PRN (21:22)
[2018-02-24] MEDS: MEMANTINE HCL 10MG TABLET PO SCH (22:35)
[2018-02-25] VITALS (7 sets, daily range): BP systolic 99–148; BP diastolic 46–89
[2018-02-25] MEDS: IPRATROPIUM/ALBUTEROL 0.5-3(2.5)MG/3ML NEB HHN SCH ×6 (04:35→21:07)
[2018-02-25] MEDS: ACETAMINOPHEN 650MG/20.3ML UDC PO PRN (06:23)
[2018-02-25] MEDS: DOCUSATE SODIUM SUGAR FREE 100MG/10ML UDC PO SCH ×2 (09:00→16:25)
[2018-02-25] MEDS: ENOXAPARIN 30MG/0.3ML SYR SUBCUT SCH (09:01)
[2018-02-25] MEDS: ASCORBIC ACID 500 MG TABLET PO SCH (09:02)
[2018-02-25] MEDS: CHOLECALCIFEROL (VIT D3) 400 UNIT TABLET PO SCH (09:02)
[2018-02-25] MEDS: HYDROXYCHLOROQUINE SULFATE 200MG TABLET PO SCH (09:02)
[2018-02-25] MEDS: EZETIMIBE 10MG TABLET PO SCH (09:02)
[2018-02-25] MEDS: PAROXETINE HCL 10MG TABLET PO SCH (09:02)
[2018-02-25] MEDS: ZINC SULFATE 220 MG ( 50 ) CAPSULE PO SCH (09:02)
[2018-02-25] MEDS: POLYETHYLENE GLYCOL 3350 (17GM) 1 DOSE PACK PO SCH (09:10)
[2018-02-25] MEDS: AMLODIPINE 10MG TABLET PO SCH (09:10)
[2018-02-25] MEDS: LIDOCAINE 5% PATCH TOP SCH (09:58)
[2018-02-25] MEDS: FAMOTIDINE 20MG TABLET PO SCH (21:41)
[2018-02-25] MEDS: GABAPENTIN 300MG CAPSULE PO SCH (21:41)
[2018-02-25] MEDS: ATORVASTATIN CALCIUM 10MG TABLET PO SCH (21:41)
[2018-02-25] MEDS: LEVOFLOXACIN 250MG TABLET PO SCH (21:47)
[2018-02-25] MEDS: MEMANTINE HCL 10MG TABLET PO SCH (21:47)
[2018-02-26] VITALS: BP 114/51
[2018-02-26] MEDS: MORPHINE SULFATE 10MG/5ML ORAL SOLN UDC PO PRN (00:12)
[2018-02-26] MEDS: IPRATROPIUM/ALBUTEROL 0.5-3(2.5)MG/3ML NEB HHN SCH ×5 (00:46→16:00)
[2018-02-26 03:51] VITALS: BP 109/53
[2018-02-26 08:00] VITALS: BP 110/65
[2018-02-26] MEDS: DOCUSATE SODIUM SUGAR FREE 100MG/10ML UDC PO SCH ×2 (08:40→16:28)
[2018-02-26] MEDS: LIDOCAINE 5% PATCH TOP SCH (08:41)
[2018-02-26] MEDS: ENOXAPARIN 30MG/0.3ML SYR SUBCUT SCH (08:41)
[2018-02-26] MEDS: POLYETHYLENE GLYCOL 3350 (17GM) 1 DOSE PACK PO SCH (08:41)
[2018-02-26] MEDS: PAROXETINE HCL 10MG TABLET PO SCH (08:42)
[2018-02-26] MEDS: ASCORBIC ACID 500 MG TABLET PO SCH (08:42)
[2018-02-26] MEDS: ZINC SULFATE 220 MG ( 50 ) CAPSULE PO SCH (08:42)
[2018-02-26] MEDS: HYDROXYCHLOROQUINE SULFATE 200MG TABLET PO SCH (08:42)
[2018-02-26] MEDS: CHOLECALCIFEROL (VIT D3) 400 UNIT TABLET PO SCH (08:43)
[2018-02-26] MEDS: AMLODIPINE 10MG TABLET PO SCH (08:43)
[2018-02-26] MEDS: EZETIMIBE 10MG TABLET PO SCH (08:43)
[2018-02-26 12:00] VITALS: BP 102/56
[2018-02-26] MEDS ORDERED: POLYETHYLENE GLYCOL 3350 (17GM) 1 DOSE PACK PO SCH (15:00)
[2018-02-26] MEDS ORDERED: DICYCLOMINE HCL 10MG CAPSULE PO SCH (17:00)
== END 2018-02-26 17:30 | DRG 592 ==
LOC: ER 17:55 → EDBEDREQTM 21:46 → EDBEDREQ 21:46 → ENRESERV 02-22 01:29 → 8WST 02-22 02:39
PROVIDERS: ADMIT Internal Medicine Pulmonary Disease; ATTEND Internal Medicine Pulmonary Disease
DX: L89.154 Pressure ulcer of sacral region, stage 4 (principal); E43 Unspecified severe protein-calorie malnutrition; G82.50 Quadriplegia, unspecified; I69.354 Hemiplegia and hemiparesis following cerebral infarction affecting left non-dominant side; M06.9 Rheumatoid arthritis, unspecified; J44.9 Chronic obstructive pulmonary disease, unspecified; I10 Essential (primary) hypertension; K58.9 Irritable bowel syndrome, unspecified; G62.9 Polyneuropathy, unspecified; L89.212 Pressure ulcer of right hip, stage 2; L89.629 Pressure ulcer of left heel, unspecified stage; L89.619 Pressure ulcer of right heel, unspecified stage; D64.9 Anemia, unspecified; E78.5 Hyperlipidemia, unspecified; F03.90 Unspecified dementia, unspecified severity, without behavioral disturbance, psychotic disturbance, mood disturbance, and anxiety; F32.9 Major depressive disorder, single episode, unspecified; M54.5 Low back pain; M54.2 Cervicalgia; R26.9 Unspecified abnormalities of gait and mobility; G89.29 Other chronic pain; I35.0 Nonrheumatic aortic (valve) stenosis; M81.0 Age-related osteoporosis without current pathological fracture; R62.7 Adult failure to thrive; Z85.038 Personal history of other malignant neoplasm of large intestine; Z85.118 Personal history of other malignant neoplasm of bronchus and lung; Z87.891 Personal history of nicotine dependence; Z95.2 Presence of prosthetic heart valve; Z88.0 Allergy status to penicillin; Z79.82 Long term (current) use of aspirin; Z79.899 Other long term (current) drug therapy; Z68.20 Body mass index [BMI] 20.0-20.9, adult
CPT/HCPCS: 36415; 71045; 80048; 83605; 84145; 84484; 85027; 86850; 86900; 90686; 92523; 92610; 93005; 94640; 96365; 96366; 96367; 96375; 97162; 97166; 99285; C1893; J1650; J1956; J2405; J3370; J7040; J7050; J7620; A4315

== ENCOUNTER 2018-03-25 11:22 | Inpatient (IN) | payer MEDICARE, BC ==
[~2018-03-25] VITALS: Ht 165.1 cm; Wt 44.9 kg
[2018-03-25] VITALS: BP 130/75
[~2018-03-25 11:22] MED LIST changes: -ALEN70TA46 PO; -ASPI-1159 MT; +DOCU-150 MT; +PARO10TA87 MT; +TRAM50TA94 MT
[2018-03-25] MEDS ORDERED: SODIUM CHLORIDE 0.9% 1,000 ML IV ONE (14:44)
[2018-03-25 16:49] LABS: CHLORIDE 104 mEq/L (98-107)
[2018-03-25 16:51] LABS: BASOPHILS % 0.5 % (0.0-2.0); EOSINOPHILS % 0.1 % (0.0-5.0); HEMATOCRIT. 39.8 % (36.0-48.0); HEMOGLOBIN. 12.8 g/dL (12.0-16.0); LYMPHOCYTES % 7.1 % (20.0-50.0); MEAN CORPUSCULAR HEMOGLOBIN 26.3 pg (28.0-32.0); MEAN CORPUSCULAR VOLUME 81.9 fL (81.0-99.0); MEAN PLATELET VOLUME 8.3 fl (7.4-10.4); NEUTROPHILS % 89.3 % (40.0-76.0); PLATELET 275 x1000/uL (130-400); RED BLOOD CELL COUNT 4.86 mill/uL (4.2-5.4); RED CELL DISTRIBUTION WIDTH 15.7 % (11.6-14.6)
[2018-03-25 16:52] LABS: INR 1.1; PROTHROMBIN TIME 10.9 sec (9.1-11.1)
[2018-03-25 17:53] LABS: CLARITY URINE TURBID (CLEAR); COLOR URINE YELLOW (YELLOW); KETONES URINE NEGATIVE (NEGATIVE); LEUKOCYTE ESTERASE URINE 3+ (NEGATIVE); NITRITE URINE NEGATIVE (NEGATIVE); OCCULT BLOOD URINE 2+ (NEGATIVE); PH URINE 7.5 (4.5-8.0); PROTEIN URINE 1+ (NEGATIVE); SPECIFIC GRAVITY URINE 1.015 (1.005-1.030)
[2018-03-25] MEDS ORDERED: LEVOFLOXACIN 500MG PREMIX 100 ML IV ONE (18:30)
[2018-03-25 22:12] VITALS: BP 130/67
[2018-03-26 00:05] VITALS: BP 130/67
[2018-03-26] MEDS ORDERED: BENJ PO (02:13)
[2018-03-26] MEDS ORDERED: TRAM50TA3 MT (02:18)
[2018-03-26] MEDS ORDERED: ASCO500W7 PO (02:22)
[2018-03-26] MEDS ORDERED: OR220 PO (02:23)
[2018-03-26 04:00] VITALS: BP 118/66
[2018-03-26 08:30] VITALS: BP 135/79
[2018-03-26] MEDS ORDERED: VANCOMYCIN 1 G PREMIX 200 ML IV NR (10:00)
[2018-03-26] MEDS: ENOXAPARIN 30MG/0.3ML SYR SUBCUT SCH (10:34)
[2018-03-26 12:00] VITALS: BP 111/55
[2018-03-26] MEDS: CEFEPIME 1,000 MG in DEXTROSE 5% WATER 50 ML IV SCH (12:21)
[2018-03-26 16:00] VITALS: BP 115/61
[2018-03-26] MEDS: DOCUSATE SODIUM 100MG CAPSULE PO SCH ×2 (18:47→18:48)
[2018-03-26 20:00] VITALS: BP 143/70
[2018-03-26] MEDS: POLYETHYLENE GLYCOL 3350 (17GM) 1 DOSE PACK PO SCH (21:06)
[2018-03-27] VITALS: BP 157/74
[2018-03-27 04:00] VITALS: BP 160/82
[2018-03-27] MEDS ORDERED: VANCOMYCIN 750 MG PREMIX 150 ML IV SCH (04:00)
[2018-03-27 06:20] LABS: BASOPHILS % 0.4 % (0.0-2.0); EOSINOPHILS % 0.7 % (0.0-5.0); HEMATOCRIT. 33.6 % (36.0-48.0); HEMOGLOBIN. 10.9 g/dL (12.0-16.0); LYMPHOCYTES % 14.5 % (20.0-50.0); MEAN CORPUSCULAR HEMOGLOBIN 26.3 pg (28.0-32.0); MEAN CORPUSCULAR VOLUME 81.4 fL (81.0-99.0); MEAN PLATELET VOLUME 8.8 fl (7.4-10.4); MONOCYTES % 5.4 % (2.0-8.0); PLATELET 198 x1000/uL (130-400); RED BLOOD CELL COUNT 4.13 mill/uL (4.2-5.4); RED CELL DISTRIBUTION WIDTH 15.8 % (11.6-14.6)
[2018-03-27] MEDS ORDERED: PANTOPRAZOLE 40MG DR TABLET PO SCH (06:45)
[2018-03-27 06:53] LABS: CHLORIDE 107 mEq/L (98-107)
[2018-03-27 07:01] LABS: PHOSPHORUS 2.6 mg/dL (2.5-4.9)
[2018-03-27 08:00] VITALS: BP 148/78
[2018-03-27] MEDS: ASCORBIC ACID 500 MG TABLET PO SCH (09:38)
[2018-03-27] MEDS: ZINC SULFATE 220 MG ( 50 ) CAPSULE PO SCH (09:38)
[2018-03-27] MEDS: ENOXAPARIN 30MG/0.3ML SYR SUBCUT SCH (09:39)
[2018-03-27] MEDS: CEFEPIME 1,000 MG in DEXTROSE 5% WATER 50 ML IV SCH (11:37)
[2018-03-27 12:11] VITALS: BP 118/63
[2018-03-27 16:29] VITALS: BP 128/72
[2018-03-27] MEDS ORDERED: TRAMADOL 50MG TABLET PO PRN (16:45)
[2018-03-27] MEDS: HYDROXYCHLOROQUINE SULFATE 200MG TABLET PO SCH (17:19)
[2018-03-27] MEDS: MEMANTINE HCL 10MG TABLET PO SCH (17:20)
[2018-03-27] MEDS: GABAPENTIN 300MG CAPSULE PO SCH (17:20)
[2018-03-27] MEDS: DOCUSATE SODIUM 100MG CAPSULE PO SCH (17:20)
[2018-03-27 20:00] VITALS: BP 123/71
[2018-03-27] MEDS: POLYETHYLENE GLYCOL 3350 (17GM) 1 DOSE PACK PO SCH (21:12)
[2018-03-27] MEDS: ATORVASTATIN CALCIUM 10MG TABLET PO SCH (21:12)
[2018-03-27] MEDS: FAMOTIDINE 20MG TABLET PO SCH (21:12)
[2018-03-27] MEDS: DICYCLOMINE HCL 10MG CAPSULE PO SCH (21:12)
[2018-03-28] VITALS: BP 108/75
[2018-03-28 04:00] VITALS: BP 129/79
[2018-03-28] MEDS: DICYCLOMINE HCL 10MG CAPSULE PO SCH ×3 (06:29→22:09)
[2018-03-28 08:00] VITALS: BP 137/76
[2018-03-28] MEDS: DOCUSATE SODIUM 100MG CAPSULE PO SCH ×2 (09:29→17:58)
[2018-03-28] MEDS: ASCORBIC ACID 500 MG TABLET PO SCH (09:29)
[2018-03-28] MEDS: ZINC SULFATE 220 MG ( 50 ) CAPSULE PO SCH (09:29)
[2018-03-28] MEDS: GABAPENTIN 300MG CAPSULE PO SCH (09:29)
[2018-03-28] MEDS: MEMANTINE HCL 10MG TABLET PO SCH ×2 (09:30→17:58)
[2018-03-28] MEDS: ENOXAPARIN 30MG/0.3ML SYR SUBCUT SCH (09:30)
[2018-03-28] MEDS: HYDROXYCHLOROQUINE SULFATE 200MG TABLET PO SCH (09:30)
[2018-03-28] MEDS: CEFEPIME 1,000 MG in DEXTROSE 5% WATER 50 ML IV SCH (12:06)
[2018-03-28 12:27] VITALS: BP 132/76
[2018-03-28 16:29] VITALS: BP 131/65
[2018-03-28] MEDS: AMPICILLIN SOD/SULBACTAM NA 1.5 G in SODIUM CHLORIDE 0.9% 50 ML IV SCH ×2 (17:58→22:08)
[2018-03-28 20:00] VITALS: BP 142/74
[2018-03-28] MEDS: ATORVASTATIN CALCIUM 10MG TABLET PO SCH (22:09)
[2018-03-28] MEDS: FAMOTIDINE 20MG TABLET PO SCH (22:09)
[2018-03-28] MEDS: POLYETHYLENE GLYCOL 3350 (17GM) 1 DOSE PACK PO SCH (22:21)
[2018-03-29] VITALS: BP 133/66
[2018-03-29 04:00] VITALS: BP 129/64
[2018-03-29] MEDS: AMPICILLIN SOD/SULBACTAM NA 1.5 G in SODIUM CHLORIDE 0.9% 50 ML IV SCH ×4 (04:36→21:28)
[2018-03-29] MEDS: DICYCLOMINE HCL 10MG CAPSULE PO SCH ×3 (06:14→21:27)
[2018-03-29 08:00] VITALS: BP 147/77
[2018-03-29 09:49] LABS: BASOPHILS % 0.9 % (0.0-2.0); EOSINOPHILS % 1.4 % (0.0-5.0); HEMATOCRIT. 34.3 % (36.0-48.0); HEMOGLOBIN. 11.1 g/dL (12.0-16.0); LYMPHOCYTES % 17.7 % (20.0-50.0); MEAN CORPUSCULAR HEMOGLOBIN 26.4 pg (28.0-32.0); MEAN CORPUSCULAR VOLUME 81.3 fL (81.0-99.0); MEAN PLATELET VOLUME 9.1 fl (7.4-10.4); MONOCYTES % 6.8 % (2.0-8.0); NEUTROPHILS % 73.2 % (40.0-76.0); PLATELET 184 x1000/uL (130-400); RED BLOOD CELL COUNT 4.22 mill/uL (4.2-5.4); RED CELL DISTRIBUTION WIDTH 15.5 % (11.6-14.6)
[2018-03-29 10:02] LABS: CHLORIDE 103 mEq/L (98-107)
[2018-03-29] MEDS: DOCUSATE SODIUM 100MG CAPSULE PO SCH ×2 (10:14→16:04)
[2018-03-29] MEDS: HYDROXYCHLOROQUINE SULFATE 200MG TABLET PO SCH (10:14)
[2018-03-29] MEDS: ENOXAPARIN 30MG/0.3ML SYR SUBCUT SCH (10:14)
[2018-03-29] MEDS: MEMANTINE HCL 10MG TABLET PO SCH ×2 (10:15→16:04)
[2018-03-29] MEDS: GABAPENTIN 300MG CAPSULE PO SCH (10:15)
[2018-03-29] MEDS: ZINC SULFATE 220 MG ( 50 ) CAPSULE PO SCH (10:15)
[2018-03-29] MEDS: ASCORBIC ACID 500 MG TABLET PO SCH (10:16)
[2018-03-29 12:00] VITALS: BP 138/74
[2018-03-29 16:00] VITALS: BP 135/71
[2018-03-29 20:00] VITALS: BP 130/69
[2018-03-29] MEDS: FAMOTIDINE 20MG TABLET PO SCH (21:27)
[2018-03-29] MEDS: POLYETHYLENE GLYCOL 3350 (17GM) 1 DOSE PACK PO SCH (21:27)
[2018-03-29] MEDS: ATORVASTATIN CALCIUM 10MG TABLET PO SCH (21:27)
[2018-03-30] VITALS: BP 127/79
[2018-03-30 04:00] VITALS: BP 150/75
[2018-03-30] MEDS: AMPICILLIN SOD/SULBACTAM NA 1.5 G in SODIUM CHLORIDE 0.9% 50 ML IV SCH ×2 (05:04→10:47)
[2018-03-30] MEDS: DICYCLOMINE HCL 10MG CAPSULE PO SCH (07:05)
[2018-03-30 08:00] VITALS: BP 148/84
[2018-03-30] MEDS: HYDROXYCHLOROQUINE SULFATE 200MG TABLET PO SCH (09:11)
[2018-03-30] MEDS: ASCORBIC ACID 500 MG TABLET PO SCH (09:11)
[2018-03-30] MEDS: ZINC SULFATE 220 MG ( 50 ) CAPSULE PO SCH (09:11)
[2018-03-30] MEDS: GABAPENTIN 300MG CAPSULE PO SCH (09:11)
[2018-03-30] MEDS: DOCUSATE SODIUM 100MG CAPSULE PO SCH (09:11)
[2018-03-30] MEDS: MEMANTINE HCL 10MG TABLET PO SCH (09:12)
[2018-03-30] MEDS: ENOXAPARIN 30MG/0.3ML SYR SUBCUT SCH (09:12)
[2018-03-30 12:00] VITALS: BP 128/60
[2018-03-30 15:30] VITALS: BP 128/60
[2018-03-30 16:00] VITALS: BP 126/63
[2018-03-30] MEDS ORDERED: AMPICILLIN SOD/SULBACTAM NA 1.5 G in SODIUM CHLORIDE 0.9% 50 ML IV SCH (22:00)
[2018-03-31] MEDS ORDERED: EZETIMIBE 10MG TABLET PO SCH (09:00)
== END 2018-03-30 17:24 | DRG 871 ==
LOC: ER 11:38 → 5WST 17:30 → EDBEDREQTM 17:32 → EDBEDREQ 17:32 → ENRESERV 20:03
PROVIDERS: ADMIT Internal Medicine Pulmonary Disease; ATTEND Internal Medicine Pulmonary Disease
DX: A41.9 Sepsis, unspecified organism (principal); L89.154 Pressure ulcer of sacral region, stage 4; E43 Unspecified severe protein-calorie malnutrition; G82.50 Quadriplegia, unspecified; G92 Toxic encephalopathy; N39.0 Urinary tract infection, site not specified; C34.90 Malignant neoplasm of unspecified part of unspecified bronchus or lung; I69.354 Hemiplegia and hemiparesis following cerebral infarction affecting left non-dominant side; I67.82 Cerebral ischemia; Z68.1 Body mass index [BMI] 19.9 or less, adult; M48.061 Spinal stenosis, lumbar region without neurogenic claudication; L89.629 Pressure ulcer of left heel, unspecified stage; L89.619 Pressure ulcer of right heel, unspecified stage; G89.29 Other chronic pain; M54.5 Low back pain; M54.2 Cervicalgia; J44.9 Chronic obstructive pulmonary disease, unspecified; R74.0 Nonspecific elevation of levels of transaminase and lactic acid dehydrogenase [LDH]; Z16.12 Extended spectrum beta lactamase (ESBL) resistance; B96.4 Proteus (mirabilis) (morganii) as the cause of diseases classified elsewhere; E78.5 Hyperlipidemia, unspecified; I25.10 Atherosclerotic heart disease of native coronary artery without angina pectoris; D64.9 Anemia, unspecified; K58.9 Irritable bowel syndrome, unspecified; M81.0 Age-related osteoporosis without current pathological fracture; F03.90 Unspecified dementia, unspecified severity, without behavioral disturbance, psychotic disturbance, mood disturbance, and anxiety; F32.9 Major depressive disorder, single episode, unspecified; I10 Essential (primary) hypertension; M06.9 Rheumatoid arthritis, unspecified; R62.7 Adult failure to thrive; Z85.038 Personal history of other malignant neoplasm of large intestine; Z95.2 Presence of prosthetic heart valve; Z95.5 Presence of coronary angioplasty implant and graft; Z90.49 Acquired absence of other specified parts of digestive tract; Z87.891 Personal history of nicotine dependence; Z88.0 Allergy status to penicillin
CPT/HCPCS: 36415; 71045; 80048; 80202; 83605; 83735; 84100; 84145; 84484; 87077; 87186; 92610; 93005; 97162; 97166; J0295; J0692; J1650; J1956; J3370; J7030; J7040; J7060

== ENCOUNTER 2018-06-07 17:07 | Emergency (ER) | payer MEDICARE, BC ==
[~2018-06-07] VITALS: Ht 160 cm; Wt 46.0 kg
[~2018-06-07 17:07] MED LIST changes: +ASCO500W7 PO; -DICY10CA88 MT; -MEMA10TA19 PO; +OR220 PO; -PARO10TA87 MT; +TRAM50TA3 MT; -TRAM50TA94 MT
[2018-06-07] MEDS ORDERED: ACETAMINOPHEN 325MG TABLET PO ONE (17:45)
[2018-06-08 00:25] VITALS: BP 168/72
== END 2018-06-08 00:51 | disposition home or self-care (01) ==
LOC: ER 17:07
DX: S01.81XA Laceration without foreign body of other part of head, initial encounter (principal); I11.9 Hypertensive heart disease without heart failure; F03.90 Unspecified dementia, unspecified severity, without behavioral disturbance, psychotic disturbance, mood disturbance, and anxiety; W19.XXXA Unspecified fall, initial encounter; Y93.9 Activity, unspecified; Y92.89 Other specified places as the place of occurrence of the external cause; Z79.899 Other long term (current) drug therapy
CPT/HCPCS: 12011; 82962; 99284

== ENCOUNTER 2018-07-03 20:26 | Inpatient (IN) | payer MEDICARE, BC ==
[~2018-07-03] VITALS: Ht 167.6 cm; Wt 54.4 kg
[2018-07-03] MEDS ORDERED: ONDANSETRON HCL 4MG/2ML INJ IV STA (21:07)
[2018-07-03] MEDS ORDERED: SODIUM CHLORIDE 0.9% 1000ML BAG (SEPSIS BOLUS) IV ONE (21:15)
[2018-07-03] MEDS ORDERED: CEFEPIME 1,000 MG in DEXTROSE 5% WATER 50 ML IV ONE (21:15)
[2018-07-03 21:28] LABS: BASOPHILS % 0.3 % (0.0-2.0); EOSINOPHILS % 0.1 % (0.0-5.0); HEMATOCRIT. 37.6 % (36.0-48.0); HEMOGLOBIN. 12.2 g/dL (12.0-16.0); LYMPHOCYTES % 10.6 % (20.0-50.0); MEAN CORPUSCULAR HEMOGLOBIN 27.4 pg (28.0-32.0); MEAN CORPUSCULAR VOLUME 84.4 fL (81.0-99.0); MEAN PLATELET VOLUME 9.5 fl (7.4-10.4); MONOCYTES % 7.4 % (2.0-8.0); NEUTROPHILS % 81.6 % (40.0-76.0); PLATELET 99 x1000/uL (130-400); RED BLOOD CELL COUNT 4.45 mill/uL (4.2-5.4); RED CELL DISTRIBUTION WIDTH 16.3 % (11.6-14.6)
[2018-07-03 21:35] LABS: CHLORIDE 127 mEq/L (98-107)
[2018-07-03 21:37] LABS: INR 1.1; PROTHROMBIN TIME 11.5 sec (9.6-11.0)
[2018-07-04] VITALS (13 sets, daily range): BP systolic 100–139; BP diastolic 53–77
[2018-07-04 00:15] LABS: CLARITY URINE TURBID (CLEAR); COLOR URINE YELLOW (YELLOW); KETONES URINE NEGATIVE (NEGATIVE); LEUKOCYTE ESTERASE URINE 3+ (NEGATIVE); NITRITE URINE POSITIVE (NEGATIVE); OCCULT BLOOD URINE 3+ (NEGATIVE); PH URINE 5.5 (4.5-8.0); PROTEIN URINE 1+ (NEGATIVE); SPECIFIC GRAVITY URINE 1.013 (1.005-1.030); UROBILINOGEN URINE 0.2 E.U./dL (0.2-1.0)
[2018-07-04] MEDS ORDERED: MEDICATION NOT ON FORMULARY EA (Tramadol Hcl 1 TAB) MT PRN (06:00)
[2018-07-04] MEDS ORDERED: DEXTROSE 50% WATER 50ML SYRINGE IV SCH (06:30)
[2018-07-04] MEDS ORDERED: TRAMADOL 50MG TABLET PO PRN (07:15)
[2018-07-04] MEDS: DOCUSATE SODIUM 100MG CAPSULE PO SCH ×3 (09:00→17:00)
[2018-07-04] MEDS ORDERED: MEDICATION NOT ON FORMULARY EA (Docusate Sodium 1 CAP) MT SCH (09:00)
[2018-07-04] MEDS ORDERED: CHOLECALCIFEROL (VIT D3) 400 UNIT TABLET PO SCH (09:00)
[2018-07-04] MEDS ORDERED: MEDICATION NOT ON FORMULARY EA (Cholecalciferol (Vitamin D) 1 CAP) MT SCH (09:00)
[2018-07-04] MEDS ORDERED: PANTOPRAZOLE SODIUM 40 MG/VIAL IV SCH (09:00)
[2018-07-04] MEDS ORDERED: DONEPEZIL HCL 10MG TABLET PO SCH (09:00)
[2018-07-04] MEDS ORDERED: HYDROXYCHLOROQUINE SULFATE 200 MG PO SCH (09:00)
[2018-07-04] MEDS ORDERED: ENOXAPARIN 30MG/0.3ML SYR SUBCUT SCH (09:00)
[2018-07-04] MEDS: DEXTROSE 5% WATER 1,000 ML IV SCH ×4 (09:30→23:04)
[2018-07-04] MEDS: PANTOPRAZOLE 40MG DR TABLET PO SCH (10:30)
[2018-07-04] MEDS: DICYCLOMINE HCL 10MG CAPSULE PO SCH ×3 (10:30→18:10)
[2018-07-04] MEDS: EZETIMIBE 10MG TABLET PO SCH (10:30)
[2018-07-04] MEDS: ASCORBIC ACID 500 MG TABLET PO SCH (10:31)
[2018-07-04] MEDS: HYDROXYCHLOROQUINE SULFATE 200MG TABLET PO SCH (10:31)
[2018-07-04] MEDS: MEMANTINE HCL 10MG TABLET PO SCH ×2 (10:31→18:10)
[2018-07-04] MEDS: ZINC SULFATE 220 MG ( 50 ) CAPSULE PO SCH (10:31)
[2018-07-04 12:25] LABS: HEMATOCRIT 35.3 % (36.0-48.0); MEAN CORPUSCULAR HEMOGLOBIN 26.8 pg (28.0-32.0); MEAN CORPUSCULAR VOLUME 86.2 fL (81.0-99.0); PLATELET 72 x1000/uL (130-400); RED CELL DISTRIBUTION WIDTH 16.7 % (11.6-14.6)
[2018-07-04 17:53] LABS: BG BASE EXCESS -4.2 mmol/L (-2.0-2.0); BG CARBOXYHEMOGLOBIN 0.9 % (0.5-1.5); BG DEOXYHEMOGLOBIN 4.8 % (0.0-5.0); BG FRACTION INSPIRED OXYGEN 21; BG HCO3 ACT 20.7 mmol/L (22.0-26.0); BG OXYGEN SATURATION 95.2 % (92.0-98.5); BG OXYHEMOGLOBIN 94.3 % (94.0-97.0); BG PCO2 36.8 mmHg (35.0-45.0); BG PH 7.367 (7.350-7.450); BG SAMPLE SITE LEFT BRACHIAL; BG TOTAL HEMOGLOBIN 11.2 g/dL (12.0-18.0); BG VENT MODE ROOM AIR
[2018-07-04] MEDS: DONEPEZIL HCL 10MG TABLET PO SCH (18:10)
[2018-07-04] MEDS ORDERED: PAROXETINE HCL 20 MG PO SCH (21:00)
[2018-07-04] MEDS ORDERED: AMPICILLIN SOD/SULBACTAM NA 1.5 G in SODIUM CHLORIDE 0.9% 50 ML IV SCH (21:00)
[2018-07-04] MEDS ORDERED: MEDICATION NOT ON FORMULARY EA (Pravastatin Sodium 40 MG) PO SCH (21:00)
[2018-07-04] MEDS ORDERED: MEDICATION NOT ON FORMULARY EA (Gabapentin 300 MG) PO SCH (21:00)
[2018-07-04] MEDS: PAROXETINE HCL 10MG TABLET PO SCH (21:26)
[2018-07-04] MEDS: CHOLECALCIFEROL (VIT D3) 400 UNIT TABLET PO SCH (21:26)
[2018-07-04] MEDS: ATORVASTATIN CALCIUM 10MG TABLET PO SCH (21:26)
[2018-07-04] MEDS: AMLODIPINE 10MG TABLET PO SCH (21:27)
[2018-07-04] MEDS: GABAPENTIN 300MG CAPSULE PO SCH (21:27)
[2018-07-04] MEDS: DOCUSATE SODIUM SUGAR FREE 100MG/10ML UDC PO SCH (23:45)
[2018-07-05] VITALS (13 sets, daily range): BP systolic 88–115; BP diastolic 50–68
[2018-07-05] MEDS: DEXTROSE 5% WATER 1,000 ML IV SCH ×3 (03:44→17:27)
[2018-07-05] MEDS: PANTOPRAZOLE 40MG DR TABLET PO SCH (06:06)
[2018-07-05 07:28] LABS: HEMATOCRIT. 35.4 % (36.0-48.0); HEMOGLOBIN. 11.2 g/dL (12.0-16.0); MEAN CORPUSCULAR VOLUME 85.8 fL (81.0-99.0); MEAN PLATELET VOLUME 10.3 fl (7.4-10.4); PLATELET 63 x1000/uL (130-400); RED BLOOD CELL COUNT 4.13 mill/uL (4.2-5.4); RED CELL DISTRIBUTION WIDTH 16.5 % (11.6-14.6)
[2018-07-05 07:45] LABS: PHOSPHORUS 3.9 mg/dL (2.5-4.9)
[2018-07-05] MEDS: ASCORBIC ACID 500 MG TABLET PO SCH (09:27)
[2018-07-05] MEDS: ZINC SULFATE 220 MG ( 50 ) CAPSULE PO SCH (09:27)
[2018-07-05] MEDS: EZETIMIBE 10MG TABLET PO SCH (09:27)
[2018-07-05] MEDS: DICYCLOMINE HCL 10MG CAPSULE PO SCH ×3 (09:27→17:24)
[2018-07-05] MEDS: DOCUSATE SODIUM SUGAR FREE 100MG/10ML UDC PO SCH ×2 (09:27→17:26)
[2018-07-05] MEDS: MEMANTINE HCL 10MG TABLET PO SCH ×2 (09:27→17:25)
[2018-07-05] MEDS: CHOLECALCIFEROL (VIT D3) 400 UNIT TABLET PO SCH (09:28)
[2018-07-05] MEDS: HYDROXYCHLOROQUINE SULFATE 200MG TABLET PO SCH (09:28)
[2018-07-05] MEDS: DONEPEZIL HCL 10MG TABLET PO SCH ×2 (09:28→17:25)
[2018-07-05 10:14] LABS: SODIUM URINE RANDOM 27 mEq/L
[2018-07-05 10:29] LABS: PLATELET ESTIMATE DECREASED
[2018-07-05] MEDS: MEROPENEM 500 MG in SODIUM CHLORIDE 0.9% 50 ML IV SCH (17:24)
[2018-07-05] MEDS: SODIUM HYPOCHLORITE 0.125% 473ML SOLUTION TOP SCH (19:40)
[2018-07-05] MEDS: ATORVASTATIN CALCIUM 10MG TABLET PO SCH (20:33)
[2018-07-05] MEDS: AMLODIPINE 10MG TABLET PO SCH (20:33)
[2018-07-05] MEDS: PAROXETINE HCL 10MG TABLET PO SCH (20:33)
[2018-07-05] MEDS: GABAPENTIN 300MG CAPSULE PO SCH (20:33)
[2018-07-06] VITALS (12 sets, daily range): BP systolic 93–113; BP diastolic 52–68
[2018-07-06] MEDS: DEXTROSE 5% WATER 1,000 ML IV SCH ×3 (01:44→09:14)
[2018-07-06] MEDS: MEROPENEM 500 MG in SODIUM CHLORIDE 0.9% 50 ML IV SCH ×2 (05:21→17:06)
[2018-07-06] MEDS: PANTOPRAZOLE 40MG DR TABLET PO SCH (05:36)
[2018-07-06] MEDS: DOCUSATE SODIUM SUGAR FREE 100MG/10ML UDC PO SCH ×2 (08:03→16:34)
[2018-07-06] MEDS: MEMANTINE HCL 10MG TABLET PO SCH ×2 (08:03→16:34)
[2018-07-06] MEDS: CHOLECALCIFEROL (VIT D3) 400 UNIT TABLET PO SCH (08:03)
[2018-07-06] MEDS: ZINC SULFATE 220 MG ( 50 ) CAPSULE PO SCH (08:04)
[2018-07-06] MEDS: HYDROXYCHLOROQUINE SULFATE 200MG TABLET PO SCH (08:04)
[2018-07-06] MEDS: DONEPEZIL HCL 10MG TABLET PO SCH ×2 (08:04→16:34)
[2018-07-06] MEDS: EZETIMIBE 10MG TABLET PO SCH (08:04)
[2018-07-06] MEDS: ASCORBIC ACID 500 MG TABLET PO SCH (08:04)
[2018-07-06] MEDS: SODIUM HYPOCHLORITE 0.125% 473ML SOLUTION TOP SCH ×2 (08:05→09:00)
[2018-07-06] MEDS: DICYCLOMINE HCL 10MG CAPSULE PO SCH ×3 (08:13→16:34)
[2018-07-06 11:16] LABS: HEMOGLOBIN. 10.6 g/dL (12.0-16.0); MEAN CORPUSCULAR HEMOGLOBIN 27.3 pg (28.0-32.0); PLATELET 62 x1000/uL (130-400); RED BLOOD CELL COUNT 3.88 mill/uL (4.2-5.4); RED CELL DISTRIBUTION WIDTH 15.8 % (11.6-14.6)
[2018-07-06 11:33] LABS: PLATELET ESTIMATE DECREASED
[2018-07-06] MEDS ORDERED: DEXT 5%/0.9% NACL KCL 20MEQ/L 1,000 ML IV ONE (13:00)
[2018-07-06] MEDS: CEFTAZIDIME PENTAHYDRATE 1 G in DEXTROSE 5% WATER 50 ML IV SCH (19:00)
[2018-07-06] MEDS: ATORVASTATIN CALCIUM 10MG TABLET PO SCH (20:28)
[2018-07-06] MEDS: AMLODIPINE 10MG TABLET PO SCH (20:29)
[2018-07-06] MEDS: GABAPENTIN 300MG CAPSULE PO SCH (20:29)
[2018-07-06] MEDS: PAROXETINE HCL 10MG TABLET PO SCH (20:30)
[2018-07-06] MEDS ORDERED: CEFTAZIDIME PENTAHYDRATE 1 G in DEXTROSE 5% WATER 50 ML IV SCH (21:00)
[2018-07-07] VITALS (13 sets, daily range): BP systolic 92–126; BP diastolic 36–85
[2018-07-07 06:04] LABS: PHOSPHORUS 3.4 mg/dL (2.5-4.9)
[2018-07-07 06:25] LABS: HEMATOCRIT. 33.3 % (36.0-48.0); HEMOGLOBIN. 10.7 g/dL (12.0-16.0); MEAN CORPUSCULAR HEMOGLOBIN 27.2 pg (28.0-32.0); MEAN CORPUSCULAR VOLUME 84.6 fL (81.0-99.0); MEAN PLATELET VOLUME 10.3 fl (7.4-10.4); PLATELET 69 x1000/uL (130-400); RED BLOOD CELL COUNT 3.93 mill/uL (4.2-5.4); RED CELL DISTRIBUTION WIDTH 15.3 % (11.6-14.6)
[2018-07-07] MEDS: PANTOPRAZOLE 40MG DR TABLET PO SCH (07:06)
[2018-07-07] MEDS: SODIUM HYPOCHLORITE 0.125% 473ML SOLUTION TOP SCH ×2 (09:00)
[2018-07-07] MEDS: DICYCLOMINE HCL 10MG CAPSULE PO SCH ×3 (10:05→17:30)
[2018-07-07] MEDS: EZETIMIBE 10MG TABLET PO SCH (10:05)
[2018-07-07] MEDS: HYDROXYCHLOROQUINE SULFATE 200MG TABLET PO SCH (10:05)
[2018-07-07] MEDS: ZINC SULFATE 220 MG ( 50 ) CAPSULE PO SCH (10:05)
[2018-07-07] MEDS: ASCORBIC ACID 500 MG TABLET PO SCH (10:05)
[2018-07-07] MEDS: CHOLECALCIFEROL (VIT D3) 400 UNIT TABLET PO SCH (10:05)
[2018-07-07] MEDS: DOCUSATE SODIUM SUGAR FREE 100MG/10ML UDC PO SCH ×2 (10:05→17:30)
[2018-07-07] MEDS: MEMANTINE HCL 10MG TABLET PO SCH ×2 (10:06→17:30)
[2018-07-07] MEDS: DONEPEZIL HCL 10MG TABLET PO SCH ×2 (10:06→17:30)
[2018-07-07] MEDS: DEXT 5%/0.9% NACL KCL 20MEQ/L 1,000 ML IV SCH (14:12)
[2018-07-07 17:54] LABS: PLATELET ESTIMATE DECREASED
[2018-07-07] MEDS: CEFTAZIDIME PENTAHYDRATE 1 G in DEXTROSE 5% WATER 50 ML IV SCH (19:47)
[2018-07-07] MEDS: GABAPENTIN 300MG CAPSULE PO SCH (20:26)
[2018-07-07] MEDS: ATORVASTATIN CALCIUM 10MG TABLET PO SCH (20:26)
[2018-07-07] MEDS: AMLODIPINE 10MG TABLET PO SCH (20:26)
[2018-07-07] MEDS: PAROXETINE HCL 10MG TABLET PO SCH (20:26)
[2018-07-08] VITALS (12 sets, daily range): BP systolic 104–141; BP diastolic 53–85
[2018-07-08] MEDS: DEXT 5%/0.9% NACL KCL 20MEQ/L 1,000 ML IV SCH ×2 (05:17→17:38)
[2018-07-08 05:52] LABS: HEMATOCRIT. 32.4 % (36.0-48.0); HEMOGLOBIN. 10.6 g/dL (12.0-16.0); MEAN CORPUSCULAR HEMOGLOBIN 27.3 pg (28.0-32.0); MEAN CORPUSCULAR VOLUME 83.8 fL (81.0-99.0); MEAN PLATELET VOLUME 9.4 fl (7.4-10.4); PLATELET 70 x1000/uL (130-400); RED BLOOD CELL COUNT 3.87 mill/uL (4.2-5.4); RED CELL DISTRIBUTION WIDTH 15.6 % (11.6-14.6)
[2018-07-08] MEDS: PANTOPRAZOLE 40MG DR TABLET PO SCH (06:53)
[2018-07-08] MEDS: SODIUM HYPOCHLORITE 0.125% 473ML SOLUTION TOP SCH ×2 (09:00→09:01)
[2018-07-08] MEDS: CHOLECALCIFEROL (VIT D3) 400 UNIT TABLET PO SCH (09:01)
[2018-07-08] MEDS: ZINC SULFATE 220 MG ( 50 ) CAPSULE PO SCH (09:01)
[2018-07-08] MEDS: DOCUSATE SODIUM SUGAR FREE 100MG/10ML UDC PO SCH ×2 (09:01→17:24)
[2018-07-08] MEDS: ASCORBIC ACID 500 MG TABLET PO SCH (09:01)
[2018-07-08] MEDS: EZETIMIBE 10MG TABLET PO SCH (09:01)
[2018-07-08] MEDS: DICYCLOMINE HCL 10MG CAPSULE PO SCH ×3 (09:01→17:25)
[2018-07-08] MEDS: MEMANTINE HCL 10MG TABLET PO SCH ×2 (09:01→17:24)
[2018-07-08] MEDS: HYDROXYCHLOROQUINE SULFATE 200MG TABLET PO SCH (09:01)
[2018-07-08] MEDS: DONEPEZIL HCL 10MG TABLET PO SCH ×2 (09:01→17:24)
[2018-07-08] MEDS ORDERED: FUROSEMIDE 20MG/2ML VIAL IVP NR (12:00)
[2018-07-08 16:20] LABS: PLATELET ESTIMATE DECREASED
[2018-07-08] MEDS: CEFTAZIDIME PENTAHYDRATE 1 G in DEXTROSE 5% WATER 50 ML IV SCH (21:05)
[2018-07-08] MEDS: PAROXETINE HCL 10MG TABLET PO SCH (21:06)
[2018-07-08] MEDS: AMLODIPINE 10MG TABLET PO SCH (21:06)
[2018-07-08] MEDS: GABAPENTIN 300MG CAPSULE PO SCH (21:06)
[2018-07-08] MEDS: ATORVASTATIN CALCIUM 10MG TABLET PO SCH (21:06)
[2018-07-09] VITALS (12 sets, daily range): BP systolic 107–157; BP diastolic 59–81
[2018-07-09] MEDS: PANTOPRAZOLE 40MG DR TABLET PO SCH (05:23)
[2018-07-09 06:07] LABS: HEMATOCRIT. 31.7 % (36.0-48.0); HEMOGLOBIN. 10.5 g/dL (12.0-16.0); MEAN CORPUSCULAR HEMOGLOBIN 27.7 pg (28.0-32.0); MEAN CORPUSCULAR VOLUME 83.5 fL (81.0-99.0); MEAN PLATELET VOLUME 9.4 fl (7.4-10.4); PLATELET 96 x1000/uL (130-400); RED BLOOD CELL COUNT 3.79 mill/uL (4.2-5.4)
[2018-07-09 07:36] LABS: CHLORIDE 118 mEq/L (98-107)
[2018-07-09 07:37] LABS: PLATELET ESTIMATE DECREASED
[2018-07-09] MEDS: DOCUSATE SODIUM SUGAR FREE 100MG/10ML UDC PO SCH ×2 (08:05→17:00)
[2018-07-09] MEDS: DICYCLOMINE HCL 10MG CAPSULE PO SCH ×3 (08:05→17:34)
[2018-07-09] MEDS: DONEPEZIL HCL 10MG TABLET PO SCH ×2 (08:05→17:34)
[2018-07-09] MEDS: EZETIMIBE 10MG TABLET PO SCH (08:05)
[2018-07-09] MEDS: ASCORBIC ACID 500 MG TABLET PO SCH (08:05)
[2018-07-09] MEDS: MEMANTINE HCL 10MG TABLET PO SCH ×2 (08:05→17:58)
[2018-07-09] MEDS: CHOLECALCIFEROL (VIT D3) 400 UNIT TABLET PO SCH (08:05)
[2018-07-09] MEDS: ZINC SULFATE 220 MG ( 50 ) CAPSULE PO SCH (08:05)
[2018-07-09] MEDS: DEXT 5%/0.9% NACL KCL 20MEQ/L 1,000 ML IV SCH (08:06)
[2018-07-09] MEDS: SODIUM HYPOCHLORITE 0.125% 473ML SOLUTION TOP SCH ×2 (08:06)
[2018-07-09] MEDS: HYDROXYCHLOROQUINE SULFATE 200MG TABLET PO SCH (08:09)
[2018-07-09] MEDS: CEFTAZIDIME PENTAHYDRATE 1 G in DEXTROSE 5% WATER 50 ML IV SCH (20:31)
[2018-07-09] MEDS: ATORVASTATIN CALCIUM 10MG TABLET PO SCH (20:32)
[2018-07-09] MEDS: GABAPENTIN 300MG CAPSULE PO SCH (20:32)
[2018-07-09] MEDS: PAROXETINE HCL 10MG TABLET PO SCH (20:32)
[2018-07-09] MEDS: DEXTROSE 5% WATER 1,000 ML IV SCH (20:32)
[2018-07-09] MEDS: AMLODIPINE 10MG TABLET PO SCH (20:32)
[2018-07-10] VITALS (12 sets, daily range): BP systolic 98–135; BP diastolic 62–77
[2018-07-10 06:31] LABS: HEMATOCRIT. 32.7 % (36.0-48.0); HEMOGLOBIN. 10.8 g/dL (12.0-16.0); MEAN CORPUSCULAR HEMOGLOBIN 27.5 pg (28.0-32.0); MEAN CORPUSCULAR VOLUME 83.1 fL (81.0-99.0); PLATELET 102 x1000/uL (130-400); RED BLOOD CELL COUNT 3.94 mill/uL (4.2-5.4); RED CELL DISTRIBUTION WIDTH 15.6 % (11.6-14.6)
[2018-07-10] MEDS: DEXTROSE 5% WATER 1,000 ML IV SCH ×2 (06:34→20:02)
[2018-07-10] MEDS: PANTOPRAZOLE 40MG DR TABLET PO SCH (06:34)
[2018-07-10 06:44] LABS: CHLORIDE 119 mEq/L (98-107)
[2018-07-10] MEDS: DOCUSATE SODIUM SUGAR FREE 100MG/10ML UDC PO SCH ×2 (08:42→16:56)
[2018-07-10] MEDS: EZETIMIBE 10MG TABLET PO SCH (08:43)
[2018-07-10] MEDS: CHOLECALCIFEROL (VIT D3) 400 UNIT TABLET PO SCH (08:43)
[2018-07-10] MEDS: HYDROXYCHLOROQUINE SULFATE 200MG TABLET PO SCH (08:43)
[2018-07-10] MEDS: DONEPEZIL HCL 10MG TABLET PO SCH ×2 (08:43→16:56)
[2018-07-10] MEDS: SODIUM HYPOCHLORITE 0.125% 473ML SOLUTION TOP SCH ×2 (08:43→09:00)
[2018-07-10] MEDS: DICYCLOMINE HCL 10MG CAPSULE PO SCH ×3 (08:43→16:56)
[2018-07-10] MEDS: ASCORBIC ACID 500 MG TABLET PO SCH (08:43)
[2018-07-10] MEDS: MEMANTINE HCL 10MG TABLET PO SCH ×2 (08:43→16:56)
[2018-07-10] MEDS: ZINC SULFATE 220 MG ( 50 ) CAPSULE PO SCH (08:43)
[2018-07-10] MEDS: IPRATROPIUM/ALBUTEROL 0.5-3(2.5)MG/3ML NEB HHN PRN ×2 (14:54→21:30)
[2018-07-10 16:36] LABS: PLATELET ESTIMATE DECREASED
[2018-07-10] MEDS: AZITHROMYCIN 500 MG in DEXT 5% WATER 250 ML IV SCH (16:38)
[2018-07-10] MEDS: CEFTAZIDIME PENTAHYDRATE 1 G in DEXTROSE 5% WATER 50 ML IV SCH (18:23)
[2018-07-10 19:03] LABS: BG BASE EXCESS -3.6 mmol/L (-2.0-2.0); BG CARBOXYHEMOGLOBIN 0.3 % (0.5-1.5); BG DEOXYHEMOGLOBIN 3.8 % (0.0-5.0); BG FRACTION INSPIRED OXYGEN 32; BG HCO3 ACT 22.2 mmol/L (22.0-26.0); BG METHEMOGLOBIN 0.2 % (0.0-1.5); BG OXYGEN SATURATION 96.2 % (92.0-98.5); BG OXYHEMOGLOBIN 95.7 % (94.0-97.0); BG PH 7.331 (7.350-7.450); BG PO2 88.3 mmHg (75.0-100.0); BG SAMPLE SITE LEFT RADIAL; BG TOTAL HEMOGLOBIN 11.1 g/dL (12.0-18.0); BG VENT MODE NASAL CANNULA
[2018-07-10 19:44] LABS: T4 FREE 1.03 ng/dL (0.76-1.46)
[2018-07-10] MEDS: ATORVASTATIN CALCIUM 10MG TABLET PO SCH (22:12)
[2018-07-10] MEDS: GABAPENTIN 300MG CAPSULE PO SCH (22:12)
[2018-07-10] MEDS: PAROXETINE HCL 10MG TABLET PO SCH (22:12)
[2018-07-10] MEDS: AMLODIPINE 10MG TABLET PO SCH (22:13)
[2018-07-11] VITALS (11 sets, daily range): BP systolic 54–132; BP diastolic 32–73
[2018-07-11] MEDS: IPRATROPIUM/ALBUTEROL 0.5-3(2.5)MG/3ML NEB HHN PRN (04:01)
[2018-07-11 06:11] LABS: HEMATOCRIT. 28.9 % (36.0-48.0); HEMOGLOBIN. 9.5 g/dL (12.0-16.0); MEAN CORPUSCULAR HEMOGLOBIN 27.6 pg (28.0-32.0); MEAN CORPUSCULAR VOLUME 84.2 fL (81.0-99.0); MEAN PLATELET VOLUME 8.7 fl (7.4-10.4); PLATELET 82 x1000/uL (130-400); RED BLOOD CELL COUNT 3.44 mill/uL (4.2-5.4); RED CELL DISTRIBUTION WIDTH 16.1 % (11.6-14.6)
[2018-07-11 06:25] LABS: CHLORIDE 114 mEq/L (98-107)
[2018-07-11] MEDS: PANTOPRAZOLE 40MG DR TABLET PO SCH (06:26)
[2018-07-11] MEDS: DEXTROSE 5% WATER 1,000 ML IV SCH ×2 (06:31→17:34)
[2018-07-11 06:32] LABS: PHOSPHORUS 2.7 mg/dL (2.5-4.9)
[2018-07-11 06:36] LABS: CREATINE KINASE 39 IU/L (26-192)
[2018-07-11 07:25] LABS: PLATELET ESTIMATE DECREASED
[2018-07-11] MEDS: DOCUSATE SODIUM SUGAR FREE 100MG/10ML UDC PO SCH ×2 (08:29→17:33)
[2018-07-11] MEDS: HYDROXYCHLOROQUINE SULFATE 200MG TABLET PO SCH (08:30)
[2018-07-11] MEDS: DONEPEZIL HCL 10MG TABLET PO SCH ×2 (08:30→17:33)
[2018-07-11] MEDS: ASCORBIC ACID 500 MG TABLET PO SCH (08:30)
[2018-07-11] MEDS: CHOLECALCIFEROL (VIT D3) 400 UNIT TABLET PO SCH (08:30)
[2018-07-11] MEDS: MEMANTINE HCL 10MG TABLET PO SCH ×2 (08:30→17:33)
[2018-07-11] MEDS: EZETIMIBE 10MG TABLET PO SCH (08:30)
[2018-07-11] MEDS: DICYCLOMINE HCL 10MG CAPSULE PO SCH ×3 (08:30→17:33)
[2018-07-11] MEDS: ZINC SULFATE 220 MG ( 50 ) CAPSULE PO SCH (08:30)
[2018-07-11] MEDS: SODIUM HYPOCHLORITE 0.125% 473ML SOLUTION TOP SCH ×2 (09:00→11:34)
[2018-07-11 10:28] LABS: SODIUM URINE RANDOM 62 mEq/L
[2018-07-11] MEDS ORDERED: VANCOMYCIN 1 G PREMIX 200 ML IV NR (16:00)
[2018-07-11] MEDS ORDERED: MAGNESIUM 1 G PREMIX 100 ML IV NR (17:00)
[2018-07-11] MEDS ORDERED: KCL 20MEQ/100ML PREMIX 100 ML IV NR (17:00)
[2018-07-11] MEDS: AZITHROMYCIN 500 MG in DEXT 5% WATER 250 ML IV SCH (17:29)
[2018-07-12] MEDS ORDERED: VANCOMYCIN 750 MG PREMIX 150 ML IV SCH (10:00)
== END 2018-07-11 20:45 | disposition expired | DRG 871 ==
LOC: ER 20:26 → 3WST 22:55 → EDBEDREQ 22:58 → EDBEDREQTM 22:58 → ENRESERV 23:22
PROVIDERS: ADMIT Internal Medicine Pulmonary Disease; ATTEND Internal Medicine Pulmonary Disease
DX: A41.9 Sepsis, unspecified organism (principal); L89.154 Pressure ulcer of sacral region, stage 4; E43 Unspecified severe protein-calorie malnutrition; J69.0 Pneumonitis due to inhalation of food and vomit; J96.91 Respiratory failure, unspecified with hypoxia; N39.0 Urinary tract infection, site not specified; N17.9 Acute kidney failure, unspecified; G93.40 Encephalopathy, unspecified; E87.0 Hyperosmolality and hypernatremia; J44.1 Chronic obstructive pulmonary disease with (acute) exacerbation; Z68.1 Body mass index [BMI] 19.9 or less, adult; B96.4 Proteus (mirabilis) (morganii) as the cause of diseases classified elsewhere; E86.0 Dehydration; F03.90 Unspecified dementia, unspecified severity, without behavioral disturbance, psychotic disturbance, mood disturbance, and anxiety; E78.5 Hyperlipidemia, unspecified; E83.42 Hypomagnesemia; D69.6 Thrombocytopenia, unspecified; D64.9 Anemia, unspecified; B96.89 Other specified bacterial agents as the cause of diseases classified elsewhere; I25.10 Atherosclerotic heart disease of native coronary artery without angina pectoris; I10 Essential (primary) hypertension; M81.0 Age-related osteoporosis without current pathological fracture; Z66 Do not resuscitate; Z51.5 Encounter for palliative care; M06.9 Rheumatoid arthritis, unspecified; Z16.12 Extended spectrum beta lactamase (ESBL) resistance; K58.9 Irritable bowel syndrome, unspecified; G62.9 Polyneuropathy, unspecified; R74.0 Nonspecific elevation of levels of transaminase and lactic acid dehydrogenase [LDH]; R62.7 Adult failure to thrive; L89.610 Pressure ulcer of right heel, unstageable; L89.890 Pressure ulcer of other site, unstageable; L89.029 Pressure ulcer of left elbow, unspecified stage; L89.329 Pressure ulcer of left buttock, unspecified stage; L89.219 Pressure ulcer of right hip, unspecified stage; L89.129 Pressure ulcer of left upper back, unspecified stage; L89.229 Pressure ulcer of left hip, unspecified stage; I95.9 Hypotension, unspecified; R00.1 Bradycardia, unspecified; Z99.81 Dependence on supplemental oxygen; Z95.2 Presence of prosthetic heart valve; Z88.0 Allergy status to penicillin; Z87.891 Personal history of nicotine dependence; Z87.440 Personal history of urinary (tract) infections; Z85.118 Personal history of other malignant neoplasm of bronchus and lung; Z85.038 Personal history of other malignant neoplasm of large intestine; Z79.899 Other long term (current) drug therapy; Z90.49 Acquired absence of other specified parts of digestive tract
CPT/HCPCS: 36415; 36600; 71045; 80048; 81003; 82375; 82533; 82550; 82570; 82805; 83605; 83735; 83935; 84100; 84134; 84145; 84300; 84439; 84443; 84484; 85027; 87077; 87186; 92610; 93005; 93306; 96365; 96375; 99291; J0295; J0456; J0692; J0713; J1940; J2185; J2405; J3370; J3475; J3480; J7030; J7040; J7050; J7060; J7070; J7620; A4315